=== PATIENT | male | born 1950 | race Caucasian/White ===

== ENCOUNTER 2016-07-16 16:55 | Emergency (ER) | payer MEDICARE ==
[2016-07-16 18:14] VITALS: BP 125/64
[2016-07-16] MEDS ORDERED: Acetaminophen TAB* 325 MG PO ONE (18:50)
[2016-07-16] MEDS ORDERED: NS 0.9% 1000 ML* 3,000 ML IV ONE (18:50)
--- NOTE | 2016-07-16 19:13 | RAD ---
INDICATION: Septic workup COMPARISON: September 06, 2011 TECHNIQUE: An AP portable view obtained at 1857 hours is submitted. FINDINGS: Bones/Soft Tissues: There are no acute bony findings. Cardiomediastinal: The cardiomediastinal silhouette is normal. Lungs: There are no infiltrates. Pleura: There are no pleural effusions. Other: None IMPRESSION: NORMAL CHEST.
[2016-07-16 19:43] LABS: Hematocrit 35 % (42-52); Hemoglobin 11.8 g/dl (14.0-18.0); Mean Corpuscular HGB Conc 34 g/dl (31-36); Mean Corpuscular Hemoglobin 31 pg (27-31); Mean Corpuscular Volume 91 fL (80-94); Mean Platelet Volume 8 um3 (7.4-10.4); Red Blood Count 3.87 10^6/ul (4.0-5.4); Red Cell Distribution Width 15 % (10.5-15); White Blood Count 13.6 10^3/ul (3.5-10.8)
[2016-07-16 19:54] LABS: Urine Bilirubin Negative (Negative); Urine Glucose Negative (Negative); Urine Nitrite Negative (Negative)
[2016-07-16 19:58] LABS: Albumin 3.3 g/dL (3.2-5.2); BUN/Creatinine Ratio 25.5 (8-20); C Reactive Protein 67.29 mg/L (< 5.00); Calcium 8.9 mg/dL (8.6-10.3); EGFR African American 102.9 (>60); Globulin 3.2 g/dL (2-4); Potassium 3.3 mmol/L (3.5-5.0); Total Bilirubin 5.2 mg/dL (0.2-1.0); Total Protein 6.5 g/dL (6.4-8.9)
[2016-07-16] MEDS ORDERED: Iohexol 300* (CONTRAST) 10 ML SDV IV ONE (20:34)
--- NOTE | 2016-07-16 20:42 | ED ---
Colt Correa Adam, scribed for Domenic Daniels MD on 07/16/16 at 1953 . HPI Febrile Illness - HPI Summary HPI Summary: Pt is a 66 year old male presenting with a fever that set on this afternoon. He states that his temperature spiked to 103 F at approximately 16:00, accompanied by mild confusion. The pt called his PCP who advised him to come to the ED for a sepsis work-up. The pt took 2 Motrin and by the time he arrived at the ED he was afebrile. PMHx of pancreatic CA. - History of Current Complaint Chief Complaint: EDAbdPain Time Seen by Provider: 07/16/16 19:07 Hx Obtained From: Patient Onset/Duration: Started Hours Ago, Atraumatic, Still Present Timing: Constant Initial Severity: Moderate Current Severity: Mild Aggravating Factors: Nothing Alleviating Factors: OTC Medicine - Motrin Associated Signs and Symptoms: Altered Mental Status - Confusion - Allergy/Home Medications Allergies/Adverse Reactions: Allergies Allergy/AdvReac Type Severity Reaction Status Date / Time No Known Allergies Allergy Verified 05/18/14 15:27 PMH/Surg Hx/FS Hx/Imm Hx Endocrine/Hematology History: Denies: Hx Diabetes, Hx Thyroid Disease Cardiovascular History: Reports: Other Cardiovascular Problems/Disorders - MURMER WITHOUT TREATMENT Denies: Hx Congestive Heart Failure, Hx Hypertension Respiratory History: Denies: Hx Asthma, Hx Chronic Obstructive Pulmonary Disease (COPD) GI History: Denies: Hx Ulcer, Other GI Disorders History: Denies: Hx Kidney Stones - Cancer History Cancer Type, 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 Hx Chemotherapy: Yes - Surgical History Surgery Procedure, Year, and Place: ABORTED WHIPPLE PROCEDURE, TONSILECTOMY, renal stone removal Infectious Disease History: No Infectious Disease History: Denies: Hx Clostridium Difficile, Hx Hepatitis, Hx Human Immunodeficiency Virus (HIV), Hx of Known/Suspected MRSA, Hx Shingles, Hx Tuberculosis, Traveled Outside the [place] in Last 30 Days - Family History Known Family History: Positive: Other - Leukemia (mother) Negative: Cardiac Disease, Hypertension, Diabetes - Social History Occupation: Employed Full-time Lives: With Family - Alcohol Use: Occasionally Hx Substance Use: No Substance Use Type: Reports: None Hx Tobacco Use: Yes Smoking Status (MU): Former Smoker Review of Systems Positive: Fever Neurological: Other - Confusion All Other Systems Reviewed And Are Negative: Yes Physical Exam Triage Information Reviewed: Yes Vital Signs On Initial Exam: Initial Vitals Temp Pulse Resp BP Pulse Ox 99.3 F 106 24 136/61 96 07/16/16 17:01 07/16/16 17:01 07/16/16 17:01 07/16/16 17:01 07/16/16 17:01 Vital Signs Reviewed: Yes Appearance: Positive: Well-Appearing, No Pain Distress Skin: Positive: Warm, Jaundiced Head/Face: Positive: Normal Head/Face Inspection Eyes: Positive: DON ENT: Positive: Hearing grossly normal Neck: Positive: Supple Cardiovascular: Positive: RRR Abdomen Description: Positive: Nontender, Soft. Negative: Guarding Bowel Sounds: Positive: Present Musculoskeletal: Positive: Strength/ROM Intact Neurological: Positive: Sensory/Motor Intact Psychiatric: Positive: Affect/Mood Appropriate Diagnostics - Vital Signs Vital Signs Temp Pulse Resp BP Pulse Ox 07/16/16 18:12 98.0 F 82 20 125/64 99 07/16/16 17:01 99.3 F 106 24 136/61 96 - Laboratory Lab Results: Lab Results 07/16/16 07/16/16 07/16/16 Range/Units 19:25 19:25 19:25 WBC 13.6 H (3.5-10.8) 10^3/ul RBC 3.87 L (4.0-5.4) 10^6/ul Hgb 11.8 L (14.0-18.0) g/dl Hct 35 L (42-52) % MCV 91 (80-94) fL MCH 31 (27-31) pg MCHC 34 (31-36) g/dl RDW 15 (10.5-15) % Plt Count 181 (150-450) 10^3/ul MPV 8 (7.4-10.4) um3 Neut % (Auto) 90.8 H (38-83) % Lymph % (Auto) 3.0 L (25-47) % [place] % (Auto) 5.3 (1-9) % Eos % (Auto) 0.6 (0-6) % Baso % (Auto) 0.3 (0-2) % Absolute Neuts (auto) 12.3 H (1.5-7.7) 10^3/ul Absolute Lymphs (auto) 0.4 L (1.0-4.8) 10^3/ul Absolute Monos (auto) 0.7 (0-0.8) 10^3/ul Absolute Eos (auto) 0.1 (0-0.6) 10^3/ul Absolute Basos (auto) 0 (0-0.2) 10^3/ul Absolute Nucleated RBC 0.01 10^3/ul Nucleated RBC % 0.1 INR (Anticoag Therapy) 1.06 (0.89-1.11) Sodium (133-145) mmol/L Potassium (3.5-5.0) mmol/L Chloride (101-111) mmol/L Carbon Dioxide (22-32) mmol/L Anion Gap (2-11) mmol/L BUN (6-24) mg/dL Creatinine (0.67-1.17) mg/dL Est GFR ( Amer) (>60) Est GFR (Non-Af Amer) (>60) BUN/Creatinine Ratio (8-20) Glucose (70-100) mg/dL Lactic Acid (0.5-2.0) mmol/L Calcium (8.6-10.3) mg/dL Total Bilirubin (0.2-1.0) mg/dL AST (13-39) U/L ALT (7-52) U/L Alkaline Phosphatase (34-104) U/L C-Reactive Protein (< 5.00) mg/L Total Protein (6.4-8.9) g/dL Albumin (3.2-5.2) g/dL Globulin (2-4) g/dL Albumin/Globulin Ratio (1-3) Urine Color [place] Urine Appearance Clear Urine pH 5.0 (5-9) Ur Specific [place] 1.011 (1.010-1.030) Urine Protein Negative (Negative) Urine Ketones Negative (Negative) Urine Blood Negative (Negative) Urine Nitrate Negative (Negative) Urine Bilirubin Negative (Negative) Urine Urobilinogen Negative (Negative) Ur Leukocyte Esterase Negative (Negative) Urine Glucose Negative (Negative) Influenza A (Rapid) (Negative) Influenza B (Rapid) (Negative) 07/16/16 07/16/16 07/16/16 Range/Units 19:25 19:25 19:42 WBC (3.5-10.8) 10^3/ul RBC (4.0-5.4) 10^6/ul Hgb (14.0-18.0) g/dl Hct (42-52) % MCV (80-94) fL MCH (27-31) pg MCHC (31-36) g/dl RDW (10.5-15) % Plt Count (150-450) 10^3/ul MPV (7.4-10.4) um3 Neut % (Auto) (38-83) % Lymph % (Auto) (25-47) % [place] % (Auto) (1-9) % Eos % (Auto) (0-6) % Baso % (Auto) (0-2) % Absolute Neuts (auto) (1.5-7.7) 10^3/ul Absolute Lymphs (auto) (1.0-4.8) 10^3/ul Absolute Monos (auto) (0-0.8) 10^3/ul Absolute Eos (auto) (0-0.6) 10^3/ul Absolute Basos (auto) (0-0.2) 10^3/ul Absolute Nucleated RBC 10^3/ul Nucleated RBC % INR (Anticoag Therapy) (0.89-1.11) Sodium 132 L (133-145) mmol/L Potassium 3.3 L (3.5-5.0) mmol/L Chloride 99 L (101-111) mmol/L Carbon Dioxide 23 (22-32) mmol/L Anion Gap 10 (2-11) mmol/L BUN 24 (6-24) mg/dL Creatinine 0.94 (0.67-1.17) mg/dL Est GFR ( Amer) 102.9 (>60) Est GFR (Non-Af Amer) 80.0 (>60) BUN/Creatinine Ratio 25.5 H (8-20) Glucose 158 H (70-100) mg/dL Lactic Acid 1.7 (0.5-2.0) mmol/L Calcium 8.9 (8.6-10.3) mg/dL Total Bilirubin 5.20 H (0.2-1.0) mg/dL AST 85 H (13-39) U/L ALT 120 H (7-52) U/L Alkaline Phosphatase 252 H (34-104) U/L C-Reactive Protein 67.29 H (< 5.00) mg/L Total Protein 6.5 (6.4-8.9) g/dL Albumin 3.3 (3.2-5.2) g/dL Globulin 3.2 (2-4) g/dL Albumin/Globulin Ratio 1.0 (1-3) Urine Color Urine Appearance Urine pH (5-9) Ur Specific [place] (1.010-1.030) Urine Protein (Negative) Urine Ketones (Negative) Urine Blood (Negative) Urine Nitrate (Negative) Urine Bilirubin (Negative) Urine Urobilinogen (Negative) Ur Leukocyte Esterase (Negative) Urine Glucose (Negative) Influenza A (Rapid) Negative (Negative) Influenza B (Rapid) Negative (Negative) Result Diagrams: 07/16/16 19:25 07/16/16 19:25 Lab Statement: Any lab studies that have been ordered have been reviewed, and results considered in the medical decision making process. - Radiology CXR Radiology Interpretation Completed By: Radiologist - IMPRESSION: NORMAL CHEST - CT A/P CT Interpretation Completed By: Radiologist - Lung bases: The lung bases are clear. Liver: The liver is normal in size. There are no masses. There is moderate intrahepatic ductal dilatation demonstrated interval improvement. There is pneumobilia consistent with interval instrumentation. There is been interval biliary stent placement. The stent extends from the common duct into the duodenum. Gallbladder: There are no calcified gallstones. There is no evidence of wall thickening or pericholecystic fluid. The gallbladder is mildly distended Spleen: There is splenomegaly. There are no masses. Pancreas: There is again a pancreatic mass better evaluated on the pancreatic mass protocol examination from June 14, 2016. On today's examination the mass measures approximately 4.3 x 3.8 cm. These measurements are slightly smaller. There is persistent pancreatic ductal dilatation, unchanged. Adrenal glands: There is no evidence of adrenal mass. Kidneys: The kidneys are normal in size and position. There are prompt nephrograms and there is prompt excretion bilaterally. There are no renal parenchymal masses. There is no evidence of nephrolithiasis. Adenopathy: There is an enlarged lesser curvature lymph node measuring 3.9 x 2.2 cm, unchanged. Fluid collections: There are no free or localized fluid collections. Vessels:There are no significant atherosclerotic changes involving the aorta. There is no focal aneurysm. The iliac vessels are normal in caliber. The IVC appears normal. GI tract: There are no abnormality upper GI tract. There are extensive diverticula of the sigmoid colon and scattered diverticula throughout the remainder the colon without CT findings to suggest acute diverticulitis. Pelvic organs: The prostate and seminal vesicles appear normal Bladder: There are no bladder masses. Abdominal and pelvic soft tissues: The extraperitoneal abdominal and pelvic soft tissues appear normal.. Osseous structures: There are no acute osseous findings. - EKG 19:36 Cardiac Rate: NL - 79 BPM EKG Rhythm: Sinus Rhythm - Normal - Additional Comments Diagnostic Additional Comments: Influenza A (Rapid) - Negative Influenza B (Rapid) - Negative Re-Evaluation - Re-Evaluation First Eval Change: Improved Course/Dx - Diagnoses Provider Diagnoses: Febrile illness Discharge - Discharge Plan Condition: Stable Disposition: HOME Patient Education Materials: Fever in Adults (ED) Referrals: Eloise Jauregui MD [Primary Care Provider] - Additional Instructions: Follow up with Dr. Jauregui tomorrow (07/17/16). The documentation as recorded by the Colt rai Adam accurately reflects the service I personally performed and the decisions made by , Domenic Daniels MD.
--- NOTE | 2016-07-16 21:41 | RAD ---
INDICATION: Pancreatic neuroendocrine tumor COMPARISON: CT abdomen June 14, 2016; CT May 22, 2015 TECHNIQUE: Axial source images were obtained from the hemidiaphragms to the symphysis pubis following administration of oral and intravenous contrast. 115 mL Omnipaque 300 was utilized. Coronal and sagittal reconstructed images were acquired. Lung bases: The lung bases are clear. Liver: The liver is normal in size. There are no masses. There is moderate intrahepatic ductal dilatation demonstrated interval improvement. There is pneumobilia consistent with interval instrumentation. There is been interval biliary stent placement. The stent extends from the common duct into the duodenum. Gallbladder: There are no calcified gallstones. There is no evidence of wall thickening or pericholecystic fluid. The gallbladder is mildly distended Spleen: There is splenomegaly. There are no masses. Pancreas: There is again a pancreatic mass better evaluated on the pancreatic mass protocol examination from June 14, 2016. On today's examination the mass measures approximately 4.3 x 3.8 cm. These measurements are slightly smaller. There is persistent pancreatic ductal dilatation, unchanged. Adrenal glands: There is no evidence of adrenal mass. Kidneys: The kidneys are normal in size and position. There are prompt nephrograms and there is prompt excretion bilaterally. There are no renal parenchymal masses. There is no evidence of nephrolithiasis. Adenopathy: There is an enlarged lesser curvature lymph node measuring 3.9 x 2.2 cm, unchanged. Fluid collections: There are no free or localized fluid collections. Vessels:There are no significant atherosclerotic changes involving the aorta. There is no focal aneurysm. The iliac vessels are normal in caliber. The IVC appears normal. GI tract: There are no abnormality upper GI tract. There are extensive diverticula of the sigmoid colon and scattered diverticula throughout the remainder the colon without CT findings to suggest acute diverticulitis. Pelvic organs: The prostate and seminal vesicles appear normal Bladder: There are no bladder masses. Abdominal and pelvic soft tissues: The extraperitoneal abdominal and pelvic soft tissues appear normal.. Osseous structures: There are no acute osseous findings. Other: None IMPRESSION: 1. Interval biliary stenting with a decrease in the degree of intrahepatic ductal dilatation. 2. Uncinate process mass demonstrating mild interval decrease in size 3. Stable lesser curvature lymphadenopathy 4. Splenomegaly 5. Extensive diverticula without CT evidence of acute diverticulitis
--- NOTE | 2016-07-19 16:40 | ED ---
Progress - Progress Note Progress Note: Pt's venous blood cx reveals Enterobacter cloacae. Called pt to notify and he reports he's feeling better than day of evaluation. "No fever", "eating properly ", however "itching coming back a little". Started to explain he has a bacteria found in his blood and line was disconnected. Contacted his PCP who reports pt is aware of these cx findings but is reluctant to return to ED as he's feeling better. She reports he's also quite stressed w/ his dx of neuroendocrine tumor which he's had for 6 years now. Had stent placed in late June and liver enzymes/bilirubin improved however appear to be elevated on 07/16 as well as having a high WBC count. PCP reports pt tx'd his fever prior to arrival which is most likely why he was afebrile during visit here. She agrees to contact him again and request he f/u at ED. Will notify providers on tonight as well in the event he returns. PCP also states cx results were not forwarded to [facility] - will do so if pt has given permission. Re-Evaluation - Re-Evaluation First Eval Change: Improved Course/Dx - Diagnoses Provider Diagnoses: Febrile illness
--- NOTE | 2016-07-20 14:52 | PN ---
Progress Note - Progress Note Note: Patient blood culture grew Enterobacter cloacae which called microbiology department and stated is not a normal bacteria on skin. Attempted to call patient twice and was unable to make contact. Left voicemail stating as long as feeling okay and afebrile (which according to Reema's note yesterday) can take levofloxacin once a day for 10 days and follow up with primary. Advised if not feeling well or has a fever to return to ED immediately as will need IV antibiotics.
== END 2016-07-16 22:39 | disposition home or self-care (01) ==
LOC: ED 16:55
DX: R50.9 Fever, unspecified (principal); Z85.07 Personal history of malignant neoplasm of pancreas
CPT/HCPCS: 36415; 71010; 74177; 80053; 81003; 83605; 85025; 85610; 86140; 87040; 87077; 87186; 87205; 87502; 93005; 99282; Q9967

== ENCOUNTER 2018-06-10 15:08 | Emergency (ER) | payer MEDICARE ==
[2018-06-10] MEDS ORDERED: NS 0.9% 1000 ML** 1,000 ML IV ONE (15:09)
[2018-06-10] MEDS ORDERED: Alteplase* 100 MG VIAL ONE (15:20)
[2018-06-10] MEDS ORDERED: Esmolol 10 MG/ML IVPREMIX* 2,500 MG/250 ML BAG IVPB ONE (15:39)
--- NOTE | 2018-06-10 15:59 | ED ---
Neurological HPI - HPI Summary HPI Summary: Patient is a 67 y/o M presenting via ambulance as zaheer barrera. Zaheer barrera called at 1500 HOSPITALIST NOCTURNIST PHYSICIAN, arrival of patient at 1506, immediately evaluated by provider at 1506. It is noted that patient was on treadmill just this morning. Patient had a conversation with at around 1300. He was unreachable for the next hour. A friend was sent to the house, patient was found on the floor, unresponsive, with emesis besides him. Patient is awake and unable to recall fall in ED. EMS reports that patient had left pronator drift, fatigue, grogginess. PMHx of type 1 diabetes, BG was 246. They note that left eye is "blown" from a previous injury. Dr. Valentine at bedside at 1507. Patient wheeled to CT at 1509. On triage , pain denied, nothing noted to aggravate/alleviate Sx. Home medications and allergies are reviewed. - History of Current Complaint Chief Complaint: EDAltMentalStatus Stated Complaint: ZAHEER HANSON Time Seen by Provider: 06/10/18 15:09 Hx Obtained From: Patient Onset/Duration: Started hours ago - found on floor at around 1400, Still Present Current Severity: None - pain denied Pain Intensity: 0 Pain Scale Used: 0-10 Numeric - 0/10 Character: Other: - left pronator drift, fatigue, groggy Aggravating: Nothing Alleviating: Nothing Associated Signs and Symptoms: Positive: Memory Loss - Allergy/Home Medications Allergies/Adverse Reactions: Allergies Allergy/AdvReac Type Severity Reaction Status Date / Time lorazepam AdvReac Severe Agitation Verified 06/10/18 17:07 Home Medications: Home Medications Brimonidine P 0.15%(NF) [Alphagan P 0.15%(NF)] 1 drop BOTH EYES BID 06/10/18 [ History Confirmed 06/10/18] Cyanocobalamin TAB* [Vitamin B12 TAB*] 3,000 mcg SL DAILY 06/10/18 [History Confirmed 06/10/18] Insulin GLARGINE(*) [Lantus(*)] 40 units SUBCUT DAILY 06/10/18 [History Confirmed 06/10/18] Insulin Lispro [Humalog Kwikpen] 8 unit SUBCUT .WITH EVERY MEAL 06/10/18 [ History Confirmed 06/10/18] Losartan TAB* [Cozaar TAB*] 100 mg PO DAILY 06/10/18 [History Confirmed 06/10/18 ] Timolol 0.5% OPTH.DAVID* [Timoptic 0.5% Opth*] 1 drop LEFT EYE DAILY 06/10/18 [ History Confirmed 06/10/18] metFORMIN* [Glucophage 850 MG TAB *] 850 mg PO BID 06/10/18 [History Confirmed 06/10/18] PMH/Surg Hx/FS Hx/Imm Hx Endocrine/Hematology History: Reports: Hx Diabetes - not on meds, "artificial" per patient Denies: Hx Thyroid Disease Cardiovascular History: Reports: Hx Hypertension, Other Cardiovascular Problems/ Disorders - MURMER WITHOUT TREATMENT Denies: Hx Congestive Heart Failure Respiratory History: Denies: Hx Asthma, Hx Chronic Obstructive Pulmonary Disease (COPD) GI History: Denies: Hx Ulcer, Other GI Disorders History: Denies: Hx Dialysis, Hx Kidney Stones, Hx Renal Disease - Cancer History Cancer Type, 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 Hx Chemotherapy: Yes - Surgical History Surgery Procedure, Year, and Place: ABORTED WHIPPLE PROCEDURE, TONSILECTOMY, renal stone removal 2014 Infectious Disease History: No Infectious Disease History: Denies: Hx Clostridium Difficile, Hx Hepatitis, Hx Human Immunodeficiency Virus (HIV), Hx of Known/Suspected MRSA, Hx Shingles, Hx Tuberculosis, Traveled Outside the [place] in Last 30 Days - Family History Known Family History: Positive: Other - Leukemia (mother) Negative: Cardiac Disease, Hypertension, Diabetes - Social History Alcohol Use: Occasionally Hx Substance Use: No Substance Use Type: Reports: None Hx Tobacco Use: Yes Smoking Status (MU): Former Smoker Review of Systems Constitutional: Other - POSITIVE - GROGGINESS Positive: Fatigue Positive: Vomiting Neurological: Other - POSITIVE - PRONATOR DRIFT, MEMORY LOSS Positive: Syncope All Other Systems Reviewed And Are Negative: Yes Physical Exam - Summary Physical Exam Summary: Appearance: Well appearing, no pain distress Skin: warm, dry, reflects adequate perfusion Head/face: normal Eyes: EOMI, DON ENT: normal Neck: supple, non-tender Respiratory: CTA, breath sounds present Cardiovascular: RRR, pulses symmetrical Abdomen: non-tender, soft Musculoskeletal: normal, strength/ROM intact Neuro: A&Ox3, GCS 15, NIH 1 Triage Information Reviewed: Yes Vital Signs On Initial Exam: Initial Vitals Temp Pulse Resp BP Pulse Ox 101.5 F 86 20 185/83 99 01/30/19 15:15 06/10/18 15:15 06/10/18 15:15 06/10/18 15:15 06/10/18 15:15 Vital Signs Reviewed: Yes Diagnostics - Vital Signs Vital Signs Temp Pulse Resp BP Pulse Ox 06/10/18 15:37 97 06/10/18 15:22 88 192/80 94 06/10/18 15:21 90 94 06/10/18 15:15 101.5 F 86 20 185/83 99 - Laboratory Lab Results: Lab Results 06/10/18 Range/Units 15:24 POC Glucose (mg/dL) 287 H (70-100) mg/dL Result Diagrams: 06/10/18 15:37 06/10/18 15:37 Lab Statement: Any lab studies that have been ordered have been reviewed, and results considered in the medical decision making process. - Radiology cxr Radiology Interpretation Completed By: Radiologist Summary of Radiographic Findings: CXR IMPRESSION: NO ACTIVE CARDIOPULMONARY DISEASE. THIS REPORT WAS REVIEWED BY ED PHYSICIAN. - CT brain ct CT Interpretation Completed By: Radiologist Summary of CT Findings: BRAIN CT IMPRESSION: NO ACUTE INTRACRANIAL PATHOLOGY. CHRONIC SMALL VESSEL ISCHEMIC CHANGE. THIS REPORT WAS REVIEWED BY ED PHYSICIAN. head cta CT Interpretation Completed By: Radiologist Summary of CT Findings: HEAD CTA IMPRESSION: No occlusion or hemodynamically significant stenosis in the arteries of the. neck. THIS REPORT WAS REVIEWED BY ED PHYSICIAN. abd/pel ct CT Interpretation Completed By: Radiologist Summary of CT Findings: CT ABD/PEL IMPRESSION: 1. Similar size and appearance of large pancreatic mass with common bile duct. stent in place. No definite evidence of metastatic progression of disease. 2. Other chronic findings, as above. This report was reviewed by ED physician. - EKG 1542 Cardiac Rate: NL - rate of 86 BPM EKG Rhythm: Sinus Rhythm Summary of EKG Findings: EKG showed sinus rhythm with rate of 86 BPM, LBBB. 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 Non-Paretic Hand: Both Correctly Best Gaze (Only Horizontal Eye Movement): Normal Visual Field Testing: No Visual Loss Facial Paresis-Pt to Smile & Close Eyes or Grimace Symmetry: Normal/Symmetrical Motor Function - Right Arm: No Drift-Holds 10 Seconds Motor Function - Left Arm: Drifts LT 10 seconds Motor Function - Right Leg: No Drift-Holds 10 Seconds Motor Function - Left Leg: No Drift-Holds 10 Seconds Limb Ataxia-Must be out of Proportion to Weakness Present: Absent Sensory (Use Pinprick to Test Arms/Legs/Trunk/Face): Normal Best Language (Describe Picture, Name Items): No Aphasia Dysarthria (Read Several Words): Normal Extinction and Inattention: No Abnormality Total Score: 1 Re-Evaluation - Re-Evaluation First Eval Re-Evaluation Time: 15:22 Comment: Patient back from CT, NIH carried out Third Eval Re-Evaluation Time: 16:15 Comment: Aware of patient's fever Fourth Eval Re-Evaluation Time: 16:51 Comment: Bladder scan showed urinary retention, 457 ml, Evans cath to be placed. Fifth Eval Re-Evaluation Time: 16:56 Comment: reports that Ativan "makes him go crazy" Second Eval Re-Evaluation Time: 16:00 Comment: , who is out of town in [place], was reached, she notes that patient sounded fatigued/groggy at around 1100 today. Sixth + Eval Re-Evaluation Time: 19:37 Comment: Transfer discussed with patient, patient is agreeable. Course/Dx - Course Course Of Treatment: Patient is a 67 y/o M presenting via ambulance as zaheer barrera. Zaheer barrera called at 1500 HOSPITALIST NOCTURNIST PHYSICIAN, arrival of patient at 1506, immediately evaluated by provider at 1506. It is noted that patient was on treadmill just this morning. Patient had a conversation with at around 1300. He was unreachable for the next hour. A friend was sent to the house, patient was found on the floor, unresponsive, with emesis besides him. Patient is awake and unable to recall fall in ED. EMS reports that patient had left pronator drift, fatigue, grogginess. PMHx of type 1 diabetes, BG was 246. They note that left eye is "blown" from a previous injury. EKG showed sinus rhythm with rate of 86 BPM, LBBB. BRAIN CT IMPRESSION: NO ACUTE INTRACRANIAL PATHOLOGY. CHRONIC SMALL VESSEL ISCHEMIC CHANGE. CXR IMPRESSION: NO ACTIVE CARDIOPULMONARY DISEASE. , who is out of town in [place], was reached, she notes that patient sounded fatigued/groggy at around 1100 today. 1511 - Patient's case was discussed with Dr. Valentine, he will evaluate. 1513 - Dr. Castellanos communicated CT results. 1522 - Dr. Valentine initiates NIH stroke scale. 1539 - Dr. Dill was consulted on patient's LBBB. 1610 - Dr. Valentine had contacted , relayed conversation. Hx of anxiety is reported, he recommends Ativan for patient. Patient is noted to have a fever. Bladder scan showed urinary retention, 457 ml , Evans cath to be placed. Ativan not given as reports that Ativan "makes him go crazy". HEAD CTA IMPRESSION: No occlusion or hemodynamically significant stenosis in the arteries of the. neck. During ED course, patient was given Fluids, Piperacillin sod/tazobactam sod 3.375 gm in sodium chloride 100 mls @ 200 mls/hr IVPB ED ONCE, Tylenol 650 mg PO, and Esmolol 2500 mg in 250 ml @ 26.971 mls/hr IVPB .PER PARAMETERS KHURRAM 50 MCG/KG/MIN. Influenza A, B were negative. Labs, UA were obtained. Patient had elevated LFTs, fever. CT ABD /PEL IMPRESSION: 1. Similar size and appearance of large pancreatic mass with common bile duct. stent in place. No definite evidence of metastatic progression of disease. 2. Other chronic findings, as above. 184 - Hospitalist services had been contacted. Jordon Mcnulty from hospitalist services dicussed patient's case with GI Dr. Johnson. Per Jordon Humphrey note, it was possible that this patient would need his biliary stent replaced for treatment of sepsis. We do not offer this service at this hospital, so it was recommended that the patient be transferred to a higher level of care." Patient's GI at [facility] in [place] will be contacted. 1934 - Unable to reach Dr. Toure directly, Dr. Chamorro in ED was contacted. Patient's case was discussed, Dr. Chamorro accepts fortransfer. Patient is agreeable with transfer. - Differential Dx Differential Diagnoses Neuro: Positive: Cerebrovascular Accident, Intracranial Bleed, Transient Ischemic Attack, Other - sepsis/pancreatic tumor - Diagnoses Provider Diagnoses: Pancreatic tumor, Sepsis - Physician Notifications Discussed Care Of Patient With: Tha Valentine Time Discussed With Above Provider: 15:11 Instructed by Provider To: Other - 1511 - Patient's case was discussed with Dr. Valentine, he will evaluate. 1513 - Dr. Castellanos communicated CT results. 1522 - Dr. Valentine initiates NIH stroke scale. 1539 - Dr. Dill was consulted on patient's LBBB. 1610 - Dr. Valentine had contacted , relayed conversation. Hx of anxiety is reported, he recommends Ativan for patient. 1844 - Hospitalist services had been contacted. Per Jordon Humphrey note, it was possible that this patient would need his biliary stent replaced for treatment of sepsis. We do not offer this service at this hospital, so it was recommended that the patient be transferred to a higher level of care." GI at [place] to be contacted. 193 - Unable to reach Dr. Toure directly, Dr. Wheat in ED was contacted. Patient's case was discussed, Dr. Wheat accepts for transfer - Critical Care Time Critical Care Time: 30-74 min Discharge - Sign-Out/Discharge Documenting (check all that apply): Patient Departure - transfer - Discharge Plan Condition: Good Disposition: TRANS HIGHER LVL OF CARE FAC Referrals: Eloise Jauregui MD [Primary Care Provider] - - Billing Disposition and Condition Condition: GOOD Disposition: Trans Higher Lvl of Care Fac - Attestation Statements Document Initiated by Jenaro: Yes Documenting Scribe: ISAAC GREGORY Provider For Whom Jenaro is Documenting (Include Credential): RCIK WILLS MD Scribe Attestation: I, ISAAC GREGORY , scribed for RICK WILLS MD on 06/10/18 at 1958. Scribe Documentation Reviewed: Yes Provider Attestation: The documentation as recorded by the ISAAC rai accurately reflects the service I personally performed and the decisions made by me, RICK WILLS MD Status of Scribe Document: Viewed
[2018-06-10] MEDS ORDERED: Esmolol DRIP* 10 MG/ML 250 ML BAG IVPB SCH (16:00)
[2018-06-10 16:11] LABS: ABS Basophils 0 10^3/ul (0-0.2); ABS Eosinophils 0 10^3/ul (0-0.6); ABS Lymphocytes 0.3 10^3/ul (1.0-4.8); ABS Monocytes 0.5 10^3/ul (0-0.8); ABS Neutrophils 6.7 10^3/ul (1.5-7.7); ABS Nucleated RBC 0 10^3/ul; Eosinophil % 0.5 %; Hematocrit 41 % (42-52); Hemoglobin 13.9 g/dl (14.0-18.0); Lymphocyte % 4.6 %; Mean Corpuscular HGB Conc 34 g/dl (31-36); Mean Corpuscular Hemoglobin 30 pg (27-31); Mean Corpuscular Volume 90 fL (80-94); Mean Platelet Volume 8.3 fL (7.4-10.4); Nucleated Red Blood Cells % 0; Platelet Count 115 10^3/ul (150-450); Red Blood Count 4.56 10^6/ul (4.00-5.40); Red Cell Distribution Width 17 % (10.5-15); White Blood Count 7.6 10^3/ul (3.5-10.8)
[2018-06-10] MEDS ORDERED: LORazepam INJ* 2 MG/ML 1 ML VIAL IV PUSH ONE (16:14)
[2018-06-10] MEDS ORDERED: Acetaminophen SUPP* 650 MG SUPP PR ONE (16:16)
[2018-06-10 16:17] LABS: Activated Partial Thrombo Time 26.8 seconds (26.0-36.3); INR 1.06 (0.77-1.02)
[2018-06-10] MEDS ORDERED: Iodixanol* (CONTRAST) 320 MG/ML 100 ML SDV IV ONE (16:19)
[2018-06-10 16:31] LABS: Albumin 4.4 g/dL (3.2-5.2); Albumin/Globulin Ratio 1.6 (1-3); BUN/Creatinine Ratio 21.1 (8-20); Calcium 9.8 mg/dL (8.6-10.3); EGFR African American 81.4 (>60); EGFR Non-African American 67.3 (>60); Globulin 2.8 g/dL (2-4); HDL Cholesterol 47.2 mg/dL; Potassium 3.7 mmol/L (3.5-5.0); Total Bilirubin 1.5 mg/dL (0.2-1.0); Total Protein 7.2 g/dL (6.4-8.9)
[2018-06-10 16:32] LABS: Troponin I 0.03 ng/mL (<0.04)
[2018-06-10] MEDS ORDERED: Acetaminophen TAB* 325 MG ONE (16:44)
[2018-06-10 16:45] LABS: Influenza A Molecular NEGATIVE (Negative); Influenza B Molecular NEGATIVE (Negative)
[2018-06-10] MEDS ORDERED: Acetaminophen TAB* 325 MG PO ONE (16:46)
[2018-06-10 16:57] LABS: Urine Appearance Clear; Urine Bacteria Absent (Absent); Urine Bilirubin Negative (Negative); Urine Blood 2+ (Negative); Urine Color Yellow; Urine Glucose 1+(50 mg/dL) (Negative); Urine Ketones Negative (Negative); Urine Nitrite Negative (Negative); Urine Protein 1+(30 mg/dL) (Negative); Urine Red Blood Cell 3+(>10/hpf) (Absent); Urine Specific Gravity 1.016 (1.010-1.030); Urine Urobilinogen Negative (Negative); Urine White Blood Cell Trace(0-5/hpf) (Absent)
[2018-06-10] MEDS ORDERED: Iodixanol 320 (CONTRAST) 100 ML SDV IV ONE (17:55)
--- NOTE | 2018-06-10 18:38 | CONS ---
CONSULTATION REPORT: DATE OF CONSULT: ADDENDUM: We reached the , Tracy and I had a long discussion with her. She initially said that he last spoke to Ed at about 11 o'clock and he was tremorous and groggy at that point and tired. It is unclear when that actually started. She thought that this was typical for some of the spells that he has from time to time; last time was in January. It is thought to be either due to anxiety or low blood sugar. Of note, she says that his blood sugar was found to be 40 recently and his insulin was decreased from 30 units a day to 20 units a day within the week. She then called back to check in on him. He said initially it is noon, but then he was not exactly sure what time and he did not respond and she then reached a neighbor who went in, found him and then contacted the ambulance as described above. I discussed with her that it is unclear when he was last known well. It could have been when he began having possible ischemia to his brain. It could have been as early as 11 o'clock, but it is unclear and he is doing better now as I described earlier. I discussed with her that he is not a TPA candidate, but that we would be looking at the intracranial and carotid blood vessels to see if there is any other treatments. We will be getting things such as MRI scan. He will also need echo, fasting lipids. I discussed it is possible that this is not a TIA or a stroke because this could have been related to hypertension or some other problem, but we will see how things go. Thank you for sharing his case. [id number]/[facility] #: [id number] JULIANN
[2018-06-10] MEDS ORDERED: Piperacillin/Tazobac ADVAN(*) 3.375 GM in NS 0.9% 100 ML* 100 ML IVPB ONE (18:40)
--- NOTE | 2018-06-10 18:49 | PN ---
Hospitalist Progress Note Date of Service: 06/10/[address] Abdul of the Emergency Department with regards to this patient. I did not see or examine the patient. This case was discussed by me with Dr. Janie Johnson of Gastroenterology and based on Abdomen/Pelvis CT results, Elevated LFTs, Fever, and Known History of Neuroendocrine Tumor of the Pancreas with Biliary Stent, it was possible that this patient would need his biliary stent replaced for treatment of sepsis. We do not offer this service at this hospital, so it was recommended that the patient be transferred to a higher level of care. This was conveyed to Dr. Abdul of the Emergency Department.
[2018-06-10 20:37] VITALS: BP 169/77
--- NOTE | 2018-06-10 22:52 | CONS ---
TWO ADDENDUMS ARE NOW INCLUDED ON THIS REPORT CONSULTATION REPORT: DATE OF CONSULT: 06/10/18 - EMERGENCY DEPT PATIENT OF: Dr. Valladares and Dr. Jauregui. HISTORY OF PRESENT ILLNESS: This is a 67-year-old right-handed man who is being evaluated for possible stroke. He was fully active this morning and was on his treadmill jogging without problem. Sometime this afternoon, the neighbors were contacted by an out-of-town , who asked them to go and check on him. He was found upstairs lying on the floor with some vomit nearby. He was awake, but had some difficulty standing. He was brought in by ambulance, taken immediately to CT scan. Initial history from the paramedics was that there was some communication at 1 o'clock, but this is unclear whether this has been his first concern. He does not know when this happened and all he rememberers is that he was fine when he was jogging on the treadmill this morning. We have 2 numbers, but none for his 's cellphone and she is out of town. We have been unable to reach any other family members at this point. He is improved since being in ER. He says he feels slightly fatigued all over, but no focal deficits per him. He has a history of diabetes and hypertension and a history of pancreatic cancer. He has a [id number] history of smoking and he has not smoked for the past 10 years. No history of alcohol or drug abuse. PAST MEDICAL HISTORY: The patient has had left kidney stone with left hydronephrosis and has had a neuroendocrine carcinoid tumor of the pancreas diagnosed in 2011. The patient has had a pancreatic biopsy. MEDICATIONS: Include: 1. Losartan, recently reduced apparently to 20 mg a day. 2. He is on insulin and he does not remember the most recent dose. ALLERGIES: He has no known drug allergies. REVIEW OF SYSTEMS: Negative in all 14 spheres other than in HPI. There are no visual complaints and no headache. PHYSICAL EXAM: On exam, blood pressure is now 185/86, his pulse is 80, respirations 12. Temperature being taken, this is not in the chart yet. Blood pressure was more elevated in the ambulance. Cranial nerves II through XII were intact other than a dilated left pupil, which was traumatic. There was initially a slight facial asymmetry, but this resolved. Motor exam is with normal tone, strength, [id number], [id number], and he had no leg drift. In the right side, he had a right pronator drift initially; and just after 20 minutes, it was just a trace drift. He had no points off for dysarthria and he had intact speech and sensation. Chest: Clear. Cardiovascular: Regular rate and rhythm. Abdomen: Soft with positive bowel sounds. DIAGNOSTIC STUDIES/LAB DATA: CT scan showed no bleed or acute findings. There were some chronic small-vessel ischemic changes. Labs are pending. IMPRESSION/PLAN: As best we can tell his last known wel before focal neurologic deficits l was 9 or 10 o'clock, but we are trying to reach the . He does not know how she can be reached. We reached out to his doctors to see if they have her contact information, which they do not. We are tying to reach the now by reaching the neighbor and getting information, but the last known well as best we can tell may be 10 o'clock. Once the blood work comes back, we are going to be getting a CTA most likely depending on what his BUN and creatinine is and will be treating his blood pressure and his blood sugars as needed. He Thank you for sharing his case. ADDENDUM NO.1: We reached the , Tracy, and I had a long discussion with her. She initially said that he last spoke to Ed at about 11 o'clock and he was tremorous and groggy at that point and tired. It is unclear when that actually started. She thought that this was typical for some of the spells that he has from time to time; last time was in January. It is thought to be either due to anxiety or low blood sugar. Of note, she says that his blood sugar was found to be 40 recently and his insulin was decreased from 30 units a day to 20 units a day within the week. She then called back to check in on him. He said initially it is noon, but then he was not exactly sure what time and he did not respond and she then reached a neighbor who went in, found him and then contacted the ambulance as described above. I discussed with her that it is unclear when he was last known well. when he began having possible ischemia to his brain. It could have been as early as 11 o'clock, but it is unclear and he is doing better now as I described earlier. I discussed with her that he is not a TPA candidate, but that we would be looking at the intracranial and carotid blood vessels to see if there is any other treatments. We will be getting things such as MRI scan. He will also need echo, fasting lipids. I discussed it is possible that this is not a TIA or a stroke because this could have been related to hypertension or some other problem, but we will see how things go. Thank you for sharing his case. ADDENDUM NO.2: He has a temperature of 101, and I discussed this with Dr. Abdul and he is going to begin evaluating this as well; and depending on what his studies show, if he becomes confused, he may need a spinal tap. [id number]/[facility] #: [id number]/[facility] #: [id number]/[facility] #: [id number] JULIANN
--- NOTE | 2018-06-11 03:52 | CONS ---
CONSULTATION REPORT: DATE OF CONSULT: ADDENDUM: He has a temperature of 101, and I discussed this with Dr. Abdul and he is going to begin evaluating this as well; and depending on what his studies show, if he becomes confused, he may need a spinal tap. [id number]/[facility] #: [id number] MTDD
== END 2018-06-10 20:45 | disposition short-term general hospital (02) ==
LOC: ED 15:08
DX: D37.8 Neoplasm of uncertain behavior of other specified digestive organs (principal); A41.9 Sepsis, unspecified organism; R55 Syncope and collapse; R53.83 Other fatigue; R11.10 Vomiting, unspecified; Z87.891 Personal history of nicotine dependence; I10 Essential (primary) hypertension
CPT/HCPCS: 36415; 70450; 70496; 70498; 71045; 74177; 80053; 80061; 81003; 81015; 83605; 84484; 85025; 85610; 85730; 86850; 86900; 86901; 87086; 93005; 96365; 96366; 96375; 99285; A9270-GY; J2060; J2543; J2997; Q9967

== ENCOUNTER 2018-07-14 09:41 | Emergency (ER) | payer MEDICARE ==
[2018-07-14] MEDS ORDERED: NS 0.9% 1000 ML** 1,000 ML IV ONE (10:26)
--- OUTSIDE RECORDS SUMMARY | 2018-07-14 10:32 | XMS REPORT | Continuity of Care Document ---
:1950 External Reference #:[id number] Author Name Shiraz Zakia Care Team Providers Name Role Phone Eloise Jauregui MD Primary Care Physician Unavailable Payers Date Identification Numbers Payment Provider Subscriber Policy Number: [id number] Medicare Blue Ppo Roc Coronel PayID: [id number] [address] [address] THI Moreau [address] Advance Directives Description No Information Available Problems Date Description Provider Status Onset: 06/09/2015 Other specified polyneuropathies lOga Olvera MD Active Onset: 06/09/2015 Syncope and collapse Olga Olvera MD Active Family History Date Family Member(s) Observation Comments General Stroke General Diabetes Type II General Cancer Father due to in farming () accident Mother Leukemia Mother due to Cancer () - leukemia First Daughter Hypothyroidism Social History Type Date Description Comments Sex Unknown Marital Status Lives With 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 2-3 days a week Allergies, Adverse Reactions, Alerts Description No Known Drug Allergies Medications Medication Date Status Form Strength Qnty SIG Indications Ordering Provider Jardiance 06/24/ Active Tablets 10mg 30tab 10mg by mouth E13.8 Galvez 2019 s daily MD Nikolas Berman 06/24/ Active Solution 100Unit/ML 15ml 30 units E13.8 Galvez Kwikpen 2019 Pen-Inject daily at MD Antonella bedtime, maximum dose 50 units/day Metformin HCL 06/24/ Active Tablets ER 750mg 90tab take 1 tablet E13.8 Galvez ER 2018 24HR s by mouth MD Antonella daily Freestyle 04/27/ Active Misc 2unit place one E13.8 Galvez Nahum 14 2017 s sensor every MD Antonella Day/Sensor/Fl 14 days smooth Monitoring System Freestyle 04/27/ Active Device 1unit use at least E13.8 Galvez Nahum 14 2018 s 4 times daily MD Antonella Day/[place]/Fl with sensor smooth Monitoring System Pen Donna 02/19/ Active Misc 30G X 8 mm 200un use one pen E13.8 Galvez 2017 its needle 4 MD Antonella times daily Timolol / Active Solution 0.5% 1 drop in Unknown Maleate 0000 left eye daily Vitamin B12 / Active Tablets 3000mcg once daily Unknown 0000 Sub sublingually Brimonidine / Active Solution 0.15% 1 drops to Unknown Tartrate 0000 both eyes twie daily Losartan / Active Tablets 100mg 1 by mouth Unknown Potassium 0000 every day Humalog 04/16/ Hx Solution 100Unit/ML 15ml 8 units with Lenny Rosspen 2017 - Pen-Inject every meal MD Antonella 2018 Lantus 02/19/ Hx Solution 100Unit/ML 15ml 28 units E13.8 Galvez Solostar 2018 - Pen-Inject daily MD Antonella 2018 Freestyle 02/02/ Hx Device 1unit use every 8 E13.8 Galvez Nahum/[place]/ 2018 - s hours with MD Geovani Berman 04/27/ sensor Monitoring 2018 System Freestyle 02/02/ Hx Misc 3unit place device E13.8 Galvez Nahum/Sensor/ 2018 - s on skin every MD Geovani Berman days; use Monitoring 2017 with reader System every 8 hours Metformin HCL / Hx Tablets 850mg 1 by mouth Unknown 0000 - twice a day 2018 Sandostatin / Hx Kit 20mg once monthly Unknown [place] 0000 - 2018 Immunizations Description No Information Available Vital Signs Date Vital Result Comment 06/24/2018 8:29am Height 70 inches 5'10" Weight 182.00 lb w/shoes Heart Rate 73 /min BP Systolic Sitting 200 mmHg BP Diastolic Sitting 95 mmHg BMI (Body Mass Index) 26.1 kg/m2 02/19/2018 8:42am Height 70 inches 5'10" Weight 186.00 lb Heart Rate 62 /min BP Systolic Sitting 195 mmHg BP Diastolic Sitting 89 mmHg BMI (Body Mass Index) 26.7 kg/m2 02/02/2018 7:49am Height 70 inches 5'10" Weight 186.00 lb w/ shoes Heart Rate 60 /min BP Systolic Sitting 187 mmHg BP Diastolic Sitting 85 mmHg BMI (Body Mass Index) 26.7 kg/m2 06/09/2015 9:23am Height 70 inches 5'10" Weight 211.00 lb Heart Rate 64 /min BP Systolic Sitting 120 mmHg BP Diastolic Sitting 72 mmHg Respiratory Rate 16 /min BMI (Body Mass Index) 30.3 kg/m2 Results Test Date Facility Test Result H/L Range Note Laboratory test finding 06/24/[address] [facility] In House Glucose Random 281 Hemoglobin A1c 8.7 High 5-7 Laboratory test 02/05/2018 [facility] Chromogranin-A 55 ng/mL <93 1, [address] [place] [address] [phone] Glucagon <13 pg/mL <=80 3 Insulin Level 3.6 mcIU/mL N 2.0-16.0 4 C-Peptide 1.5 ng/mL 1.1 - 4.4 5 Vasoactive Intestinal Campbell <50 pg/mL <75 6 Gastrin <10 pg/mL 7 Urine Metanephrines 02/05/2018 [facility] Urine 132 mcg/24h [address] [place] [address] [phone] Urine Normetanephrine 313 mcg/24h 9 Urine Total Metanephrines 445 mcg/24h 10 Urine Collection Duration 24 h Urine Volume 1550 mL 11 Catecholamine 24HR 02/05/2018 [facility] Urine Collection 24 h Urine Fract [address] [place] [address] [phone] Urine Total Volume 1550 mL Urine Norepinephrine 31 mcg/24h 15-80 Urine Epinephrine 4.7 mcg/24h <21 Urine Dopamine 271 mcg/24h 65-400 12 Creatinine 24HR 02/05/2018 [facility] Urine Collection 24 hr Urine [address] [place] [address] [phone] Urine Total Volume 1500 mL Urine Random Creatinine 121.47 mg/dL Urine Creatinine/24HR 1822.05 mg/24Hr High 600-1800 Hiaa,5- 02/05/2018 [facility] Urine 5Hiaa 6.0 mg/24h <=8.[address] [place] [address] [phone] Urine Collection Duration 24 h Urine Total Volume 1550 mL 13 Laboratory test 02/05/2018 [facility] Afp Tumor 2.1 ng/mL < 6.[address] [place] [address] [phone] HCG Tumor Marker <0.6 IU/L <1.4 15 Laboratory test finding 02/02/2018 [employer] In House Glucose Random 348 Hemoglobin A1c 10.2 High 5-7 Ketones 0.1 Laboratory test 2015 [facility] Hemoglobin A1c 6.2 % High Less than [address] (Glyco HGB) 6.0 [place] [address] [phone] Laboratory test 06/09/2015 [facility] TSH (Thyroid 2.46 N 0.34 -5.60 [address] Stim Horm) ?IU/[place] [address] [phone] Free T4 (Free Thyroxine) 1.03 ng/mL N 0.61-1.12 18 Vitamin B12 377 pg/mL N 180-914 19 Folic Acid (Folate) 12.03 ng/mL N >3.99 20 Methylmalonic Acid Mma 0.52 nmol/mL Abnormal <=0.40 21 Homocysteine 11 mcmol/L N 22 Nitza (Antinuclear Antibodies) Negative N Negative 23 Erythrocyte Sed Rate 17 mm/Hr N 0-40 24 C Reactive Protein 6.69 mg/L High < 5.00 25 Protein 06/09/2015 [facility] Total 7.5 g/dL N 6.3 - Electrophoresis [address] Protein(Pep) 7.9 [place] [address] [phone] Albumin 3.9 g/dL N 3.4-4.7 Alpha-1 Globulin 0.3 g/dL N 0.1-0.3 Alpha-2 Globulin 1.0 g/dL N 0.6-1.0 Beta Globulin 1.3 g/dL Abnormal 0.7-1.2 Gamma Globulin 1.0 g/dL N 0.6-1.6 Albumin/Globulin Ratio 1.06 N Impression See Comment N 26 1 FASTING 2 A reagent change was implemented on date 09/17/2017. Measured chromogranin A concentrations were on average 7% higher using the new reagent formulation. However, for individual specimens the variation may exceed 7%. Upon request, samples previously submitted within the last six months can be retested using the new reagent formulation. ADDITIONAL INFORMATION This test was developed and its performance characteristics determined by [facility] in a manner consistent with CLIA requirements. This test has not been cleared or approved by the U.S. Food and Drug Administration. The testing method is a homogeneous time-resolved immunofluorescent assay. Values obtained with different assay methods or kits may be different and cannot be used interchangeably. Test results cannot be interpreted as absolute evidence for the presence or absence of malignant disease. Test Performed by: [facility] [place] [address] 3 ADDITIONAL INFORMATION Proven glucagonomas have analyte concentrations 10 fold or more above the reference range. This test was developed and its performance characteristics determined by [facility] in a manner consistent with CLIA requirements. This test has not been cleared or approved by the U.S. Food and Drug Administration. Test Performed by: [facility] [employer] [address] [place] [address] 4 FASTING 5 Test Performed by: [facility] [place] [address] 6 ADDITIONAL INFORMATION This test was developed and its performance characteristics determined by [facility] in a manner consistent with CLIA requirements. This test has not been cleared or approved by the U.S. Food and Drug Administration. Test Performed by: [facility] [employer] - [facility] [employer] [place] [id number] 7 REFERENCE VALUE <100 Reference ranges valid for >=8 hour fast. Test Performed by: [facility] [employer] [facility] [employer] [address] [place] [id number] 8 REFERENCE VALUE 44-261 (Normotensive) <400 (Hypertensive) 9 REFERENCE VALUE 138-521 (Normotensive) <900 (Hypertensive) 10 REFERENCE VALUE 233-716 (Normotensive) <1300 (Hypertensive) 11 ADDITIONAL INFORMATION This test was developed and its performance characteristics determined by [facility] in a manner consistent with CLIA requirements. This test has not been cleared or approved by the U.S. Food and Drug Administration. Test Performed by: [facility] [employer] [facility] - [address] [address] 12 ADDITIONAL INFORMATION This test was developed and its performance characteristics determined by [facility] in a manner consistent with CLIA requirements. This test has not been cleared or approved by the U.S. Food and Drug Administration. Test Performed by: [facility] [employer] [facility] [employer] [address] [place] [phone] 13 ADDITIONAL INFORMATION Liquid Chromatography-Tandem Mass Spectrometry (LC-MS/MS). Values obtained from different assay methods or kits may be different and cannot be used interchangeably. The results cannot be interpreted as absolute evidence for the presence or absence of malignant disease. This test was developed and its performance characteristics determined by [facility] in a manner consistent with CLIA requirements. This test has not been cleared or approved by the U.S. Food and Drug Administration. Test Performed by: [facility] - [address] [address] 14 ADDITIONAL INFORMATION The testing method is an immunoenzymatic assay manufactured by [employer] and performed on the [employer] DxI 800. Values obtained with different assay methods or kits may be different and cannot be used interchangeably. Test results cannot be interpreted as absolute evidence for the presence or absence of malignant disease. Alpha-Fetoprotein values are not interpretable in females for the investigation of malignant disease. Test Performed by: [facility] - [address] [address] 15 ADDITIONAL INFORMATION This test has been modified from the rodent control worker's instructions. Its performance characteristics were determined by [facility] in a manner consistent with CLIA requirements. This test has not been cleared or approved by the U.S. Food and Drug Administration. The testing method is an electrochemiluminescence assay manufactured by [employer] and performed on the Modular [employer] Sim system. Values obtained with different assay methods or kits may be different and cannot be used interchangeably. Test results cannot be interpreted as absolute evidence for the presence or absence of malignant disease. Test Performed by: [facility] - [address] [address] 16 Therapeutic target for the treatment of diabetes Mellitus patients is <7% HBA1C, and in selective patients <6.0%.Please refer to [place] [employer] Diabetic care guidelines for further information. 17 with immunofixation Copy Result to: MARILEE QUINCY ([id number]) 18 with immunofixation Copy Result to: MARILEE QUINCY ([id number]) 19 Normal Range 180 to 914 Indeterminate Range 145 to 180 Deficient Range <145 20 with immunofixation Copy Result to: ELOISE JAUREGUIS ([id number]) 21 In this sample, the concentration of methylmalonic acid (MMA) was minimally elevated. As the upper limit of the reference range varies in different laboratories from 0.4 to 0.6 nmol/mL. This finding could be considered normal, especially if the patient does not show other signs of vitamin B12 deficiency. Test Performed by: [place] [address] Gang Sawyer: Jordon Bray II, M.D., Ph.D. 22 REFERENCE VALUE <=13 (Fasting) Test Performed by: [place] [address] Gang Sawyer: Jordon Bray II, M.D., Ph.D. 23 with immunofixation Copy Result to: ELOISE JAUREGUI ([id number]) 24 with immunofixation Copy Result to: MARILEE QUINCY ([id number]) 25 Acute inflammation: >10.00 26 RESULT: No apparent monoclonal protein on serum electrophoresis. Test Performed by: [place] [address] Gang Sawyer: Jordon Bray II, M.D., Ph.D. Procedures Date Code Description Status 06/24/2018 18710 Glucose Monitoring Interpetation And Report Completed Encounters Type Date Location Provider Dx Diagnosis Office Visit 02/19/2018 Bryn Berman MD E13.8 Oth diabetes 8:40a Endocrinology of [employer] mellitus with unspecified complications C7A.8 Other malignant neuroendocrine tumors Office Visit 02/02/2018 Bryn Berman E13.8 Oth diabetes 8:00a Endocrinology of MD mellitus with [employer] unspecified complications C7A.8 Other malignant neuroendocrine tumors Office Visit 06/09/2015 [place] Olga Olvera, G62.89 Other specified 9:30a Neurologic polyneuropathies [facility] R55 Syncope and collapse Plan of Treatment Future Appointment(s):08/06/2018 9:20 am - Lenny Berman MD at [place] [facility] [place]06/24/2018 - Lenny Berman MDE13.8 Other specified diabetes mellitus with unspecified complicatNew Medication:Jardiance 10 mg - 10mg by mouth dailyBasaglar Kwikpen 100 Unit/ML - 30 units daily at bedtime, maximum dose 50 units/dayMetformin HCL ER 750 mg - take 1 tablet by mouth dailyFollow up:6 weeksInstructions:1. Change Lantus, as follows: - 12 units tonight, 06/24 - 12 units tomorrow morning, 06/25 - 28 units tomorrow evening, , and after 2. Your glucose goal is less than 140 in the morning. 3. Your glucose goal is 100-200 during the day. 4. Restart metformin XR 750mg at bedtime. 5. Start Jardiance 10mg in the morning. 6. Your blood pressure goal is less then 150/90. 7. Return in 6-8 weeks.C25.9 Malignant neoplasm of pancreas, [id number] Anxiety disorder, [id number] Essential (primary) hypertension
--- NOTE | 2018-07-14 10:57 | ED ---
Neurological HPI - HPI Summary HPI Summary: This pt is a 68 y/o male [facility] c/o difficulty focusing and ambulating for the past few weeks. Pt reports he had routine blood work yesterday ordered by Dr. Valladares. Today during his routine visit with his PCP, Dr. Eloise Jauregui, told him his lab results were abnormal and advised him to come to the ED. 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 He also notes his "legs don' t move right" and it is "hard for him to walk" and per , pt is a runner. Per , the problem with his legs is not uncommon for the past 2 years and sees a therapist for this. Pt has been told his leg problem is due to anxiety. He began to take Octreotide. Denies any pain, abd pain, chest pain, SOB. Pt was at [facility] on 06/10/18 for a possible stroke that turned out to be a past injury in his eye. However, he was transferred to [place] on 06/10 for replace his displaced stent. 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 Pt started insulin in February 2018 for recently diagnosed diabetes. Pt notes his glucose has been lately high in the 200s and 300s. He does see an activity aid. He has seen Dr. Olvera, neurologist, in the past for neuropathy from his thighs down to his toes. He was prescribed B12 vitamins and within a week his neuropathy went down to his ankles but never completely resolved. His medications include antihypertensive medications and insulin. - History of Current Complaint Chief Complaint: EDAltMentalStatus Stated Complaint: GENERAL Time Seen by Provider: 07/14/18 10:20 Hx Obtained From: Patient, Family/Director Of Healthcare Systems Onset/Duration: Started weeks ago, Still Present Current Severity: Mild Neurological Deficit Location: RLE, LLE Pain Intensity: 0 Pain Scale Used: 0-10 Numeric Character: Other: - difficulty focusing and ambulating Aggravating: Nothing Alleviating: Nothing Associated Signs and Symptoms: Negative: Pain, Fever, Chest Pain, Shortness of Breath - Allergy/Home Medications Allergies/Adverse Reactions: Allergies Allergy/AdvReac Type Severity Reaction Status Date / Time lorazepam AdvReac Severe Agitation Verified 07/14/18 09:46 Home Medications: Home Medications amLODIPine TAB* [Norvasc 5 mg TAB*] 5 mg PO DAILY 07/14/18 [History Confirmed ] PMH/Surg Hx/FS Hx/Imm Hx Endocrine/Hematology History: Reports: Hx Diabetes - not on meds, "artificial" per patient Denies: Hx Thyroid Disease Cardiovascular History: Reports: Hx Hypertension, Other Cardiovascular Problems/ Disorders - MURMER WITHOUT TREATMENT Denies: Hx Congestive Heart Failure Respiratory History: Denies: Hx Asthma, Hx Chronic Obstructive Pulmonary Disease (COPD) GI History: Denies: Hx Ulcer, Other GI Disorders History: Denies: Hx Dialysis, Hx Kidney Stones, Hx Renal Disease - Cancer History Cancer Type, 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 Hx Chemotherapy: Yes - Surgical History Surgery Procedure, Year, and Place: ABORTED WHIPPLE PROCEDURE, TONSILECTOMY, renal stone removal 2014 Infectious Disease History: No Infectious Disease History: Denies: Hx Clostridium Difficile, Hx Hepatitis, Hx Human Immunodeficiency Virus (HIV), Hx of Known/Suspected MRSA, Hx Shingles, Hx Tuberculosis, Traveled Outside the [place] in Last 30 Days - Family History Known Family History: Positive: Other - Leukemia (mother) Negative: Cardiac Disease, Hypertension, Diabetes - Social History Alcohol Use: Occasionally Hx Substance Use: No Substance Use Type: Reports: None Hx Tobacco Use: Yes Smoking Status (MU): Former Smoker Review of Systems Negative: Fever, Chills Negative: Chest Pain Negative: Shortness Of Breath Negative: Abdominal Pain Neurological: Other - POS: difficulty focusing and ambulating All Other Systems Reviewed And Are Negative: Yes Physical Exam - Summary Physical Exam Summary: VITAL SIGNS: Reviewed. GENERAL: Patient is a well-developed and nourished male who is lying comfortable in the stretcher. Patient is not in any acute respiratory distress. HEAD AND FACE: Normocephalic EYES: PERRLA, EOMI x 2. EARS: Hearing grossly intact. MOUTH: Oropharynx within normal limits. NECK: Supple, trachea is midline, no adenopathy, no JVD, no carotid bruit. CHEST: Symmetric, no tenderness at palpation LUNGS: Clear to auscultation bilaterally. No wheezing or crackles. CVS: Regular rate and rhythm, S1 and S2 present, no murmurs or gallops appreciated. ABDOMEN: Soft, non-tender. Bowel sounds are normal. No abdominal abnormal pulsations. EXTREMITIES: Full ROM in all major joints, no edema, no cyanosis or clubbing. NEURO: Alert and oriented x 3. No acute neurological deficits. Speech is normal and follows commands. SKIN: Dry and warm Triage Information Reviewed: Yes Vital Signs On Initial Exam: Initial Vitals Temp Pulse Resp BP Pulse Ox 96.6 F 72 16 162/107 96 07/14/18 09:46 07/14/18 09:46 07/14/18 09:46 07/14/18 09:46 07/14/18 09:46 Vital Signs Reviewed: Yes Diagnostics - Vital Signs Vital Signs Temp Pulse Resp BP Pulse Ox 07/14/18 09:46 96.6 F 72 16 162/107 96 - Laboratory Result Diagrams: 07/14/18 10:51 07/14/18 10:51 Lab Statement: Any lab studies that have been ordered have been reviewed, and results considered in the medical decision making process. - Radiology Chest XR Radiology Interpretation Completed By: Radiologist Summary of Radiographic Findings: IMPRESSION: No evidence for acute disease. Dr. Mock has reviewed this report. - EKG 10:53 Cardiac Rate: NL - at 67 bpm EKG Rhythm: Sinus Rhythm EKG Comparison: No Significant Change - similar to past on 06/10/18. Summary of EKG Findings: LBBB. Re-Evaluation - Re-Evaluation First Eval Re-Evaluation Time: 12:40 Change: Improved Comment: Reviewed lab and CXR with pt and . Pt will be discharged home with follow up from PCP and neurology. Course/Dx - Course Assessment/Plan: Patient is a 68-year-old male who presents to the emergency department after he was called by his primary care physician and was requested to come to the emergency room to recheck abnormal blood work. Blood work without any significant abnormality except for carbon dioxide of 19, BUN is 37, glucose 237, calcium is 10.5, AST 62, alkaline phosphatase 246, ammonia is 54 and vitamin B12 more than 1450. Urinalysis is negative for UTI. Urine toxicology is negative. Chest x-ray impression: no evidence for acute disease. In the ED course the patient is at baseline. Therefore I believe the patient can be discharged home with follow-up with neurology and the primary care physician. Patient is in better control of the uncontrolled diabetes. However after hydration and insulin the patients symptoms have significantly improved. I discussed all the findings and test results with the patient. Patient was instructed to return to the emergency room immediately if any of the symptoms return or worsens. Plan of care was discussed with the patient and understands and agrees. All questions were answered at patient satisfaction. There were no further complaints or concerns. Lung exam before discharge: CTA B/L. Good air exchange. No wheezing or crackles heard. CVS: S1 and S2 present. No murmurs appreciated. Patient is alert and oriented x 3. Patient is hemodynamically stable. Patient will be discharged home with follow up from his PCP in the next 2-3 days. - Diagnoses Provider Diagnoses: Uncontrolled diabetes mellitus, Hypercalcemia, Dehydration Discharge - Sign-Out/Discharge Documenting (check all that apply): Patient Departure - Discharge home Patient Received Moderate/Deep Sedation with Procedure: No - Discharge Plan Condition: Stable Disposition: HOME Patient Education Materials: Dehydration (ED), Hypercalcemia (ED), Diabetic Hyperglycemia (ED) Referrals: Andrea Bateman MD [Medical Doctor] - Eloise Jauregui MD [Primary Care Provider] - Additional Instructions: Follow up with your primary care provider in 2-3 days and neurology. PLEASE FOLLOW UP WITH YOUR PRIMARY CARE PROVIDER WITHIN ONE WEEK FOR HIGH BLOOD PRESSURE NOTED TODAY RETURN TO THE ED FOR ANY WORSENING OR NEW SYMPTOMS. - Billing Disposition and Condition Condition: STABLE Disposition: Home - Attestation Statements Document Initiated by Jenaro: Yes Documenting Scribe: Opal Auguste Provider For Whom Jenaro is Documenting (Include Credential): Kurt Mock MD Scribe Attestation: IOpal, scribed for Kurt Mock MD on 07/15/18 at 1010. Scribe Documentation Reviewed: Yes Provider Attestation: The documentation as recorded by the Opal rai accurately reflects the service I personally performed and the decisions made by me, Kurt Mock MD Status of Scribe Document: Viewed
[2018-07-14 11:02] LABS: ABS Basophils 0.1 10^3/ul (0-0.2); ABS Eosinophils 0.1 10^3/ul (0-0.6); ABS Lymphocytes 1.5 10^3/ul (1.0-4.8); ABS Monocytes 0.6 10^3/ul (0-0.8); ABS Neutrophils 5.3 10^3/ul (1.5-7.7); ABS Nucleated RBC 0 10^3/ul; Eosinophil % 1.6 %; Hematocrit 45 % (42-52); Hemoglobin 15.3 g/dl (14.0-18.0); Lymphocyte % 19.3 %; Mean Corpuscular HGB Conc 34 g/dl (31-36); Mean Corpuscular Hemoglobin 31 pg (27-31); Mean Corpuscular Volume 90 fL (80-94); Mean Platelet Volume 8.6 fL (7.4-10.4); Nucleated Red Blood Cells % 0; Platelet Count 138 10^3/ul (150-450); Red Blood Count 4.97 10^6/ul (4.00-5.40); Red Cell Distribution Width 15 % (10.5-15); White Blood Count 7.5 10^3/ul (3.5-10.8)
[2018-07-14 11:22] LABS: ALT 62 U/L (7-52); AST 28 U/L (13-39); Albumin 4.5 g/dL (3.2-5.2); Albumin/Globulin Ratio 1.5 (1-3); Alkaline Phosphatase 246 U/L (34-104); Anion Gap 8 mmol/L (2-11); BUN/Creatinine Ratio 32.2 (8-20); Blood Urea Nitrogen 37 mg/dL (6-24); CO2 Carbon Dioxide 19 mmol/L (22-32); Calcium 10.5 mg/dL (8.6-10.3); Chloride 108 mmol/L (101-111); Creatine Kinase 42 U/L (10-223); EGFR African American 76.3 (>60); EGFR Non-African American 63.1 (>60); Glucose 237 mg/dL (70-100); Potassium 4.4 mmol/L (3.5-5.0); Sodium 135 mmol/L (135-145); Total Protein 7.5 g/dL (6.4-8.9)
[2018-07-14 11:23] LABS: Troponin I 0.01 ng/mL (<0.04)
[2018-07-14 11:27] LABS: Urine Appearance Clear; Urine Bacteria Absent (Absent); Urine Bilirubin Negative (Negative); Urine Blood Negative (Negative); Urine Color Yellow; Urine Glucose 1+(50 mg/dL) (Negative); Urine Ketones Negative (Negative); Urine Nitrite Negative (Negative); Urine Protein 1+(30 mg/dL) (Negative); Urine Red Blood Cell Trace(0-2/hpf) (Absent); Urine Specific Gravity 1.023 (1.010-1.030); Urine Urobilinogen Negative (Negative); Urine White Blood Cell Trace(0-5/hpf) (Absent)
[2018-07-14 11:41] LABS: Acetaminophen < 15 mcg/mL; Alcohol < 10 mg/dL (<10); Salicylate < 2.50 mg/dL (<30)
[2018-07-14 11:43] LABS: Barbiturates Urine Screen None Detected (None Detect); Benzodiazepine Urine Screen None Detected (None Detect); Urine Cannabinoids Screen None Detected (None Detect)
[2018-07-14 11:50] LABS: TSH (Thyroid Stimulating Horm) 2.62 mcIU/mL (0.34-5.60)
[2018-07-14] MEDS ORDERED: Insulin REGULAR(*) 1 UNITS UNIT IV PUSH ONE ×2 (12:16→12:18)
[2018-07-14 12:48] VITALS: BP 161/89
== END 2018-07-14 12:51 | disposition home or self-care (01) ==
LOC: ED 09:41
DX: E11.65 Type 2 diabetes mellitus with hyperglycemia (principal); Z79.4 Long term (current) use of insulin; E83.52 Hypercalcemia; E86.0 Dehydration; R41.840 Attention and concentration deficit; R26.2 Difficulty in walking, not elsewhere classified; I44.7 Left bundle-branch block, unspecified; I10 Essential (primary) hypertension; Z88.8 Allergy status to other drugs, medicaments and biological substances; Z87.891 Personal history of nicotine dependence
CPT/HCPCS: 36415; 71045; 80053; 80307; 80320; 80329; 81003; 81015; 82140; 82550; 82607; 83605; 83735; 84443; 84484; 85025; 87086; 93005; 96374; 99283; G0480

== ENCOUNTER 2020-11-15 08:13 | Inpatient (IN) ==
[2020-11-15 08:36] LABS: Hemoglobin 5.4 g/dL (14.0-18.0); Mean Platelet Volume 8.1 fL (7.4-10.4); Platelet Count 149 10^3/uL (150-450)
[2020-11-15 09:07] LABS: Activated Partial Thrombo Time 29.3 seconds (26.0-38.0); Fibrinogen 363.2 mg/dL (110.8-404.3)
[2020-11-15 09:15] LABS: ABS Eosinophils 0.1 10^3/ul (0-0.6); ABS Lymphocytes 1.3 10^3/ul (1.0-4.8); ABS Monocytes 0.9 10^3/ul (0-0.8); ABS Neutrophils 7.8 10^3/ul (1.5-7.7); Eosinophil % 0.9 %; Hematocrit 16 % (42-52); Lymphocyte % 12.4 %; Mean Corpuscular HGB Conc 34 g/dL (31-36); Mean Corpuscular Hemoglobin 32 pg (27-31); Mean Corpuscular Volume 94 fL (80-94); Nucleated Red Blood Cells % 0.1; Red Blood Count 1.69 10^6 /uL (4.18-5.48); Red Cell Distribution Width 16 % (10-15); White Blood Count 10.1 10^3/uL (3.5-10.8)
[2020-11-15 09:22] LABS: Albumin 2.1 g/dL (3.2-5.2); Albumin/Globulin Ratio 0.8 (1-3); Calcium 7.1 mg/dL (8.6-10.3); EGFR African American 73.6 (>60); EGFR Non-African American 60.9 (>60); Globulin 2.8 g/dL (2-4); Potassium 2.9 mmol/L (3.5-5.0); Total Bilirubin 0.5 mg/dL (0.2-1.0); Total Protein 4.9 g/dL (6.4-8.9)
[2020-11-15] MEDS ORDERED: Octreotide Acetate 50 MCG in NS 0.9% 50 ML 50 ML IV ONE (09:39)
[2020-11-15] MEDS ORDERED: Pantoprazole VIAL 40 MG VIAL IV ONE (09:40)
[2020-11-15] MEDS ORDERED: Pantoprazole 80 mg in NS BAG 80 MG/250 ML BAG IV ONE (09:40)
[2020-11-15] MEDS ORDERED: Potassium Chlor 20 meq TAB.ER PO ONE (09:55)
[2020-11-15] MEDS ORDERED: Iohexol 300 (CONTRAST) 10 ML SDV IV ONE (09:55)
[2020-11-15] MEDS ORDERED: KCL 10 MEQ/50 ML IVPREMIX 10 MEQ/50 ML BAG IV ONE (09:56)
[2020-11-15] MEDS ORDERED: Octreotide Acetate 500 MCG in NS 0.9% 100 ml BAG 100 ML IV SCH (10:00)
[2020-11-15] MEDS ORDERED: Iodixanol (CONTRAST) 320 MG/ML 100 ML SDV IV ONE (10:18)
[2020-11-15 10:52] LABS: Hematocrit 19 % (42-52); Hemoglobin 6.4 g/dL (14.0-18.0)
[2020-11-15 12:07] LABS: ABS Lymphocytes 0.6 10^3/ul (1.0-4.8); ABS Monocytes 0.6 10^3/ul (0-0.8); Eosinophil % 0.5 %; Hematocrit 20 % (42-52); Hemoglobin 6.8 g/dL (14.0-18.0); Lymphocyte % 8.8 %; Mean Corpuscular HGB Conc 34 g/dL (31-36); Mean Corpuscular Hemoglobin 30 pg (27-31); Mean Corpuscular Volume 89 fL (80-94); Mean Platelet Volume 8.2 fL (7.4-10.4); Platelet Count 122 10^3/uL (150-450); Red Blood Count 2.24 10^6 /uL (4.18-5.48); Red Cell Distribution Width 18 % (10-15); White Blood Count 7.3 10^3/uL (3.5-10.8)
[2020-11-15] MEDS ORDERED: Etomidate 20 mg/10 ml 2 MG/ML 10 ml VIAL ONE ×2 (12:07→12:08)
[2020-11-15] MEDS ORDERED: Rocuronium 50 mg VIAL 10 mg/ml 5 ml VIAL (50 mg) ONE (12:07)
[2020-11-15] MEDS ORDERED: Midazolam 2 mg/2 ml VIAL 1 mg/ml 2 ml VIAL (2 mg) ONE (12:08)
[2020-11-15] MEDS ORDERED: fentaNYL 100 mcg/2 ml 50 MCG/ML VIAL ONE ×2 (12:08→13:27)
[2020-11-15 12:20] LABS: Calcium 7.1 mg/dL (8.6-10.3); EGFR African American 82.4 (>60); EGFR Non-African American 68.1 (>60); Potassium 3.4 mmol/L (3.5-5.0)
[2020-11-15] MEDS ORDERED: Dexamethasone IV 4 MG/ML VIAL 1 ml VIAL ONE (12:42)
[2020-11-15] MEDS ORDERED: Ondansetron 4 mg VIAL 2 MG/ML 2 ml VIAL ONE (12:42)
[2020-11-15] MEDS: fentaNYL 100 mcg/2 ml 50 MCG/ML VIAL IV SLOW PU PRN ×2 (13:35→18:21)
[2020-11-15] MEDS: Propofol 10 mg/ml 100 ML BTL 100 ML IV SCH ×3 (13:51→22:24)
[2020-11-15 14:26] LABS: Urine Appearance Clear; Urine Bilirubin Negative (Negative); Urine Blood Negative (Negative); Urine Color Yellow; Urine Glucose Negative (Negative); Urine Ketones Negative (Negative); Urine Nitrite Negative (Negative); Urine Protein Negative (Negative); Urine Specific Gravity 1.023 (1.002-1.030); Urine Urobilinogen Negative (Negative)
[2020-11-15] MEDS: KCL 20 MEQ/100 ML IVPREMIX 20 MEQ/100 ML BAG IV SCH ×2 (14:58→17:42)
[2020-11-15] MEDS: Chlorhexidine MOUTHWASH 0.12% 15 ML UDC SWISH SPIT SCH (18:11)
[2020-11-15] MEDS ORDERED: Midazolam 2 mg/2 ml VIAL 1 mg/ml 2 ml VIAL (2 mg) IV SLOW PU PRN (18:34)
[2020-11-15 20:01] LABS: Hematocrit 22 % (42-52); Hemoglobin 7.6 g/dL (14.0-18.0)
[2020-11-15] MEDS: Octreotide Acetate 500 MCG in NS 0.9% 100 ML IV SCH ×2 (20:25→21:52)
[2020-11-15] MEDS: cefTRIAXone 1 gm/50 mL NS BAG 1 GM/50 ML BAG IVPB SCH (20:25)
[2020-11-15] MEDS: Pantoprazole 80 mg IN NS 80 MG/250 ML BAG IV SCH (20:50)
[2020-11-15] MEDS: NORMOSOL-R pH 7.4 1000 mL BAG 1,000 ML IV SCH (21:22)
[2020-11-16] MEDS: Chlorhexidine MOUTHWASH 0.12% 15 ML UDC SWISH SPIT SCH ×4 (00:21→11:38)
[2020-11-16] MEDS: fentaNYL 100 mcg/2 ml 50 MCG/ML VIAL IV SLOW PU PRN ×2 (02:25→06:07)
[2020-11-16] MEDS: Propofol 10 mg/ml 100 ML BTL 100 ML IV SCH ×2 (03:38→07:13)
[2020-11-16 04:23] LABS: ABS Eosinophils 0.1 10^3/ul (0-0.6); ABS Lymphocytes 0.7 10^3/ul (1.0-4.8); ABS Monocytes 0.6 10^3/ul (0-0.8); Eosinophil % 0.8 %; Hematocrit 22 % (42-52); Hemoglobin 7.7 g/dL (14.0-18.0); Mean Corpuscular HGB Conc 34 g/dL (31-36); Mean Corpuscular Hemoglobin 31 pg (27-31); Mean Corpuscular Volume 90 fL (80-94); Mean Platelet Volume 8.5 fL (7.4-10.4); Platelet Count 141 10^3/uL (150-450); Red Blood Count 2.47 10^6 /uL (4.18-5.48); Red Cell Distribution Width 18 % (10-15); White Blood Count 7.4 10^3/uL (3.5-10.8)
[2020-11-16 04:28] LABS: INR 1.3 (0.86-1.15)
[2020-11-16 04:37] LABS: Calcium 6.7 mg/dL (8.6-10.3); EGFR African American 68.3 (>60); EGFR Non-African American 56.4 (>60); Magnesium 1.7 mg/dL (1.9-2.7); Phosphorus 3.1 mg/dL (2.5-5.0); Potassium 4.3 mmol/L (3.5-5.0)
[2020-11-16] MEDS: Pantoprazole 80 mg IN NS 80 MG/250 ML BAG IV SCH (07:13)
[2020-11-16] MEDS: Octreotide Acetate 500 MCG in NS 0.9% 100 ML IV SCH ×2 (07:13→16:24)
[2020-11-16] MEDS: NORMOSOL-R pH 7.4 1000 mL BAG 1,000 ML IV SCH ×3 (07:13→23:25)
[2020-11-16] MEDS ORDERED: Magnesium Sulfate 2 gm BAG 2 GM/50 ML BAG IVPB ONE (07:33)
[2020-11-16] MEDS: CMCS: Brimonidine P 0.15%(NF) OPH SOL 5 ML BTL LEFT EYE SCH (07:34)
[2020-11-16] MEDS: Timolol 0.5% OPTH.SOL BTL LEFT EYE SCH (07:34)
[2020-11-16] MEDS ORDERED: NORMOSOL-R pH 7.4 1000 mL BAG 1,000 ML IV ONE (09:00)
[2020-11-16] MEDS ORDERED: Calcium Gluconate 2 GM in NS 0.9% 100 ml BAG 100 ML IV ONE (09:13)
[2020-11-16] MEDS ORDERED: Dexmedetomidine 1,000 MCG in NS 0.9% 250 ml 240 ML IV SCH (10:00)
[2020-11-16 10:34] LABS: PCO2 Arterial 26 mmHg (35-45); PO2 Arterial 98 mmHg (80-100)
[2020-11-16] MEDS ORDERED: Furosemide 40 mg/4 ml IV VIAL IV ONE (10:57)
[2020-11-16] MEDS ORDERED: Furosemide 20 mg/2 ml IV VIAL IV ONE (10:57)
[2020-11-16] MEDS ORDERED: Furosemide 20 mg/2 ml IV VIAL ONE (10:58)
[2020-11-16] MEDS ORDERED: Chlorhexidine MOUTHWASH 0.12% 15 ML UDC SWISH SPIT SCH (12:00)
[2020-11-16] MEDS ORDERED: Propofol 10 mg/ml 100 ML BTL 100 ML ONE (13:01)
[2020-11-16] MEDS ORDERED: fentaNYL 100 mcg/2 ml 50 MCG/ML VIAL ONE (14:25)
[2020-11-16 20:18] LABS: ABS Eosinophils 0.1 10^3/ul (0-0.6); ABS Lymphocytes 0.5 10^3/ul (1.0-4.8); ABS Monocytes 0.5 10^3/ul (0-0.8); ABS Neutrophils 5.3 10^3/ul (1.5-7.7); Hematocrit 24 % (42-52); Hemoglobin 8.2 g/dL (14.0-18.0); Lymphocyte % 8.4 %; Mean Corpuscular HGB Conc 34 g/dL (31-36); Mean Corpuscular Hemoglobin 31 pg (27-31); Mean Corpuscular Volume 91 fL (80-94); Mean Platelet Volume 8.1 fL (7.4-10.4); Platelet Count 149 10^3/uL (150-450); Red Blood Count 2.68 10^6 /uL (4.18-5.48); Red Cell Distribution Width 18 % (10-15); White Blood Count 6.5 10^3/uL (3.5-10.8)
[2020-11-16] MEDS: Pantoprazole VIAL 40 MG VIAL IV SCH (21:03)
[2020-11-16] MEDS: cefTRIAXone 1 gm/50 mL NS BAG 1 GM/50 ML BAG IVPB SCH (21:03)
[2020-11-17] MEDS: Octreotide Acetate 500 MCG in NS 0.9% 100 ML IV SCH ×3 (03:06→23:05)
[2020-11-17 05:37] LABS: Hematocrit 22 % (42-52); Hemoglobin 7.6 g/dL (14.0-18.0); Mean Corpuscular HGB Conc 35 g/dL (31-36); Mean Corpuscular Hemoglobin 31 pg (27-31); Mean Corpuscular Volume 90 fL (80-94); Mean Platelet Volume 8.3 fL (7.4-10.4); Platelet Count 140 10^3/uL (150-450); Red Blood Count 2.43 10^6 /uL (4.18-5.48); Red Cell Distribution Width 18 % (10-15); White Blood Count 4.9 10^3/uL (3.5-10.8)
[2020-11-17 05:39] LABS: INR 1.12 (0.86-1.15)
[2020-11-17 05:54] LABS: Albumin 2.2 g/dL (3.2-5.2); Albumin/Globulin Ratio 0.7 (1-3); Direct Bilirubin 0.2 mg/dL (0.03-0.18); EGFR Non-African American 65.3 (>60); Indirect Bilirubin 0.5 mg/dL (0.3-1.0); Phosphorus 1.7 mg/dL (2.5-5.0); Potassium 3.9 mmol/L (3.5-5.0); Total Bilirubin 0.7 mg/dL (0.2-1.0); Total Protein 5.2 g/dL (6.4-8.9)
[2020-11-17 05:57] LABS: Calcium 6.3 mg/dL (8.6-10.3)
[2020-11-17 06:40] LABS: ABS Lymphocytes 0.6 10^3/ul (1.0-4.8); ABS Monocytes 0.5 10^3/ul (0-0.8); ABS Neutrophils 3.8 10^3/ul (1.5-7.7); Eosinophil % 0.9 %; Lymphocyte % 12.9 %; RBC Morphology Normal (Normal)
[2020-11-17] MEDS ORDERED: Calcium Gluconate 2 GM in NS 0.9% 100 ml BAG 100 ML IV ONE (08:30)
[2020-11-17] MEDS ORDERED: Potassium Phosphate IV 15 MMOLE in NS 0.9% 250 ml 250 ML IVPB ONE (09:00)
[2020-11-17] MEDS: Pantoprazole VIAL 40 MG VIAL IV SCH ×2 (09:33→21:51)
[2020-11-17] MEDS: Timolol 0.5% OPTH.SOL BTL LEFT EYE SCH (09:33)
[2020-11-17] MEDS: CMCS: Brimonidine P 0.15%(NF) OPH SOL 5 ML BTL LEFT EYE SCH (09:33)
[2020-11-17] MEDS: Potassium & Sodium Phos 250 mg = 1 PACKET PO SCH ×3 (09:48→21:52)
[2020-11-17 12:55] LABS: Hematocrit 28 % (42-52); Hemoglobin 9.5 g/dL (14.0-18.0)
[2020-11-17] MEDS: cefTRIAXone 1 gm/50 mL NS BAG 1 GM/50 ML BAG IVPB SCH (19:50)
[2020-11-18] MEDS ORDERED: LACTATED RINGERS IV SCH (04:00)
[2020-11-18 04:24] LABS: ABS Lymphocytes 0.5 10^3/ul (1.0-4.8); ABS Monocytes 0.3 10^3/ul (0-0.8); ABS Neutrophils 7.1 10^3/ul (1.5-7.7); Eosinophil % 0.3 %; Hematocrit 26 % (42-52); Hemoglobin 8.8 g/dL (14.0-18.0); Lymphocyte % 6.5 %; Mean Corpuscular HGB Conc 34 g/dL (31-36); Mean Corpuscular Hemoglobin 31 pg (27-31); Mean Corpuscular Volume 92 fL (80-94); Mean Platelet Volume 8.1 fL (7.4-10.4); Platelet Count 147 10^3/uL (150-450); Red Blood Count 2.85 10^6 /uL (4.18-5.48); Red Cell Distribution Width 18 % (10-15)
[2020-11-18 04:29] LABS: INR 1.25 (0.86-1.15)
[2020-11-18 04:41] LABS: Albumin 2.5 g/dL (3.2-5.2); Albumin/Globulin Ratio 0.7 (1-3); EGFR African American 75.9 (>60); EGFR Non-African American 62.7 (>60); Globulin 3.6 g/dL (2-4); Magnesium 1.7 mg/dL (1.9-2.7); Total Bilirubin 3.3 mg/dL (0.2-1.0); Total Protein 6.1 g/dL (6.4-8.9)
[2020-11-18] MEDS ORDERED: Magnesium Sulfate 2 gm BAG 2 GM/50 ML BAG IVPB ONE (04:43)
[2020-11-18] MEDS ORDERED: Piperacillin/Tazobac ADVAN 3.375 GM in NS 0.9% 100 ml BAG 100 ML IV ONE (04:56)
[2020-11-18] MEDS ORDERED: Zosyn per Pharmacy NOTE FOLLOW UP SCH (05:00)
[2020-11-18 07:39] LABS: Urine Appearance Clear; Urine Bilirubin Negative (Negative); Urine Blood 1+ (Negative); Urine Color Amber; Urine Glucose Negative (Negative); Urine Ketones Negative (Negative); Urine Nitrite Negative (Negative); Urine Protein Negative (Negative); Urine Specific Gravity 1.014 (1.002-1.030); Urine Urobilinogen Negative (Negative)
[2020-11-18 07:42] LABS: Urine Bacteria Absent (Absent); Urine Red Blood Cell Trace(0-2/hpf) (Absent); Urine Squamous Epithelial Cell Present (Absent); Urine White Blood Cell Trace(0-5/hpf) (Absent)
[2020-11-18] MEDS ORDERED: ZOSYN 3.375 GM Q8H per EXTENDED INFUSION IV SCH (10:00)
[2020-11-18 10:06] LABS: Direct Bilirubin 2.6 mg/dL (0.03-0.18)
[2020-11-18] MEDS ORDERED: Vancomycin 1,000 MG in NS 0.9% 250 ml 250 ML IVPB ONE (10:30)
[2020-11-18] MEDS: Cefepime 2 GM in Dextrose 2 GM/50 ML BAG IV SCH ×2 (10:43→21:48)
[2020-11-18] MEDS: Pantoprazole VIAL 40 MG VIAL IV SCH ×2 (10:44→21:44)
[2020-11-18] MEDS: Potassium & Sodium Phos 250 mg = 1 PACKET PO SCH ×4 (10:44→21:43)
[2020-11-18] MEDS: Octreotide Acetate 500 MCG in NS 0.9% 100 ML IV SCH ×2 (11:05→21:36)
[2020-11-18] MEDS: Timolol 0.5% OPTH.SOL BTL LEFT EYE SCH (11:07)
[2020-11-18] MEDS: CMCS: Brimonidine P 0.15%(NF) OPH SOL 5 ML BTL LEFT EYE SCH (11:07)
[2020-11-18] MEDS ORDERED: Vancomycin per Pharmacy 1 EA NOTE FOLLOW UP PRN (12:18)
[2020-11-18 12:43] LABS: ABS Lymphocytes 0.4 10^3/ul (1.0-4.8); ABS Monocytes 0.7 10^3/ul (0-0.8); Eosinophil % 0.1 %; Hematocrit 24 % (42-52); Hemoglobin 7.7 g/dL (14.0-18.0); Lymphocyte % 3.5 %; Mean Corpuscular HGB Conc 33 g/dL (31-36); Mean Corpuscular Hemoglobin 30 pg (27-31); Mean Corpuscular Volume 92 fL (80-94); Mean Platelet Volume 8.2 fL (7.4-10.4); Platelet Count 132 10^3/uL (150-450); Red Blood Count 2.57 10^6 /uL (4.18-5.48); Red Cell Distribution Width 18 % (10-15); White Blood Count 12.3 10^3/uL (3.5-10.8)
[2020-11-18 12:59] LABS: Albumin 2.2 g/dL (3.2-5.2); Albumin/Globulin Ratio 0.7 (1-3); Calcium 6.7 mg/dL (8.6-10.3); EGFR African American 65.8 (>60); EGFR Non-African American 54.4 (>60); Potassium 3.5 mmol/L (3.5-5.0); Total Bilirubin 3.4 mg/dL (0.2-1.0); Total Protein 5.2 g/dL (6.4-8.9)
[2020-11-18] MEDS ORDERED: Lactulose 30 ml UDC PO SCH (14:00)
[2020-11-18 15:36] LABS: Body Fluid Source Peritonial Fluid
[2020-11-18] MEDS ORDERED: Albumin Human 25% 12.5 GM/50 ML BTL IV ONE (16:30)
[2020-11-18 16:58] LABS: Body Fluid WBC 632 /mcL
[2020-11-18] MEDS ORDERED: ALBUMIN HUMAN 25% IV ONE (17:00)
[2020-11-18 17:51] LABS: Body Fluid Mono 60 %; Body Fluid Total Cells Counted 200
[2020-11-18 18:12] LABS: Body Fluid Appearance Clear; Body Fluid Color Yellow
[2020-11-18 20:02] LABS: Hematocrit 24 % (42-52)
[2020-11-19] MEDS: Vancomycin 1000 MG in NS 0.9% 250 ML IVPB SCH ×2 (00:11→12:17)
[2020-11-19 05:06] LABS: ABS Basophils 0.1 10^3/ul (0-0.2); ABS Eosinophils 0.1 10^3/ul (0-0.6); ABS Lymphocytes 0.4 10^3/ul (1.0-4.8); ABS Monocytes 0.7 10^3/ul (0-0.8); ABS Neutrophils 10.8 10^3/ul (1.5-7.7); Eosinophil % 0.8 %; Hematocrit 24 % (42-52); Lymphocyte % 3.1 %; Mean Corpuscular HGB Conc 34 g/dL (31-36); Mean Corpuscular Hemoglobin 31 pg (27-31); Mean Corpuscular Volume 91 fL (80-94); Mean Platelet Volume 8.4 fL (7.4-10.4); Platelet Count 113 10^3/uL (150-450); Red Blood Count 2.62 10^6 /uL (4.18-5.48); Red Cell Distribution Width 18 % (10-15)
[2020-11-19 05:11] LABS: INR 1.6 (0.86-1.15)
[2020-11-19 05:26] LABS: Albumin 2.3 g/dL (3.2-5.2); Albumin/Globulin Ratio 0.8 (1-3); Calcium 6.6 mg/dL (8.6-10.3); Direct Bilirubin 3.1 mg/dL (0.03-0.18); EGFR African American 69.5 (>60); EGFR Non-African American 57.5 (>60); Indirect Bilirubin 0.9 mg/dL (0.3-1.0); Magnesium 1.8 mg/dL (1.9-2.7); Phosphorus 2.2 mg/dL (2.5-5.0); Potassium 3.6 mmol/L (3.5-5.0); Total Protein 5.3 g/dL (6.4-8.9)
[2020-11-19] MEDS: Octreotide Acetate 500 MCG in NS 0.9% 100 ML IV SCH ×3 (10:01→21:07)
[2020-11-19] MEDS: Cefepime 2 GM in Dextrose 2 GM/50 ML BAG IV SCH ×2 (10:09→21:59)
[2020-11-19] MEDS: Timolol 0.5% OPTH.SOL BTL LEFT EYE SCH (10:09)
[2020-11-19] MEDS: Potassium & Sodium Phos 250 mg = 1 PACKET PO SCH ×3 (10:10→20:35)
[2020-11-19] MEDS: Pantoprazole VIAL 40 MG VIAL IV SCH ×2 (10:11→20:35)
[2020-11-19] MEDS: CMCS: Brimonidine P 0.15%(NF) OPH SOL 5 ML BTL LEFT EYE SCH (11:10)
[2020-11-19] MEDS ORDERED: Magnesium Sulfate 2 gm BAG 2 GM/50 ML BAG IVPB ONE (18:56)
[2020-11-19] MEDS ORDERED: Octreotide Acetate 500 MCG in NS 0.9% 100 ML IV SCH (21:00)
[2020-11-19] MEDS: KCL 10 MEQ/50 ML IVPREMIX 10 MEQ/50 ML BAG IV SCH (22:45)
[2020-11-20 00:12] LABS: Albumin 2.4 g/dL (3.2-5.2); Albumin/Globulin Ratio 0.7 (1-3); Calcium 6.9 mg/dL (8.6-10.3); EGFR African American 65.3 (>60); EGFR Non-African American 53.9 (>60); Globulin 3.3 g/dL (2-4); Total Bilirubin 4.4 mg/dL (0.2-1.0); Total Protein 5.7 g/dL (6.4-8.9)
[2020-11-20] MEDS: Vancomycin 1000 MG in NS 0.9% 250 ML IVPB SCH ×2 (00:55→13:08)
[2020-11-20] MEDS ORDERED: KCL 10 MEQ/50 ML IVPREMIX 10 MEQ/50 ML BAG ONE (04:36)
[2020-11-20] MEDS: KCL 10 MEQ/50 ML IVPREMIX 10 MEQ/50 ML BAG IV SCH (04:40)
[2020-11-20 06:52] LABS: ABS Eosinophils 0.1 10^3/ul (0-0.6); ABS Lymphocytes 0.4 10^3/ul (1.0-4.8); ABS Monocytes 0.6 10^3/ul (0-0.8); ABS Neutrophils 10.1 10^3/ul (1.5-7.7); Eosinophil % 1.2 %; Hematocrit 26 % (42-52); Hemoglobin 8.6 g/dL (14.0-18.0); Lymphocyte % 3.8 %; Mean Corpuscular HGB Conc 34 g/dL (31-36); Mean Corpuscular Hemoglobin 31 pg (27-31); Mean Corpuscular Volume 91 fL (80-94); Platelet Count 131 10^3/uL (150-450); Red Blood Count 2.81 10^6 /uL (4.18-5.48); Red Cell Distribution Width 18 % (10-15); White Blood Count 11.3 10^3/uL (3.5-10.8)
[2020-11-20] MEDS: Octreotide Acetate 500 MCG in NS 0.9% 100 ML IV SCH (07:03)
[2020-11-20 07:07] LABS: Magnesium 2.3 mg/dL (1.9-2.7)
[2020-11-20 07:19] LABS: INR 1.6 (0.86-1.15)
[2020-11-20] MEDS: Pantoprazole VIAL 40 MG VIAL IV SCH ×2 (10:11→22:22)
[2020-11-20] MEDS: Timolol 0.5% OPTH.SOL BTL LEFT EYE SCH (10:12)
[2020-11-20] MEDS: CMCS: Brimonidine P 0.15%(NF) OPH SOL 5 ML BTL LEFT EYE SCH (10:12)
[2020-11-20] MEDS: Potassium & Sodium Phos 250 mg = 1 PACKET PO SCH ×3 (10:12→22:21)
[2020-11-20] MEDS: Cefepime 2 GM in Dextrose 2 GM/50 ML BAG IV SCH ×2 (10:12→22:21)
[2020-11-20 10:13] LABS: Albumin 2.2 g/dL (3.2-5.2); Albumin/Globulin Ratio 0.7 (1-3); Calcium 6.7 mg/dL (8.6-10.3); EGFR African American 64.7 (>60); EGFR Non-African American 53.5 (>60); Globulin 3.1 g/dL (2-4); Potassium 4.1 mmol/L (3.5-5.0); Total Bilirubin 4.2 mg/dL (0.2-1.0); Total Protein 5.3 g/dL (6.4-8.9)
[2020-11-20] MEDS ORDERED: Vancomycin Trough Check NOTE FOLLOW UP ONE (11:30)
[2020-11-20 12:22] LABS: EGFR African American 64.1 (>60)
[2020-11-20 12:54] LABS: Vancomycin Trough 15.4 mcg/mL
[2020-11-20 13:26] LABS: Albumin, BF 0.5 g/dL; Fluid Type, Albumin PERITONEAL; Glucose, BF 256 mg/dL
[2020-11-20 13:28] LABS: Lactate Dehydrogenase, BF 50 U/L
[2020-11-20 13:29] LABS: Fluid Type, Protein, Total PERITONEAL; Total Protein, BF 0.8 g/dL
[2020-11-21] MEDS: Vancomycin 750 MG in NS 0.9% 250 ML IVPB SCH ×3 (00:52→23:12)
[2020-11-21] MEDS: Potassium & Sodium Phos 250 mg = 1 PACKET PO SCH ×3 (08:39→21:20)
[2020-11-21] MEDS: Timolol 0.5% OPTH.SOL BTL LEFT EYE SCH (08:43)
[2020-11-21] MEDS: Pantoprazole VIAL 40 MG VIAL IV SCH ×2 (08:43→21:20)
[2020-11-21] MEDS: CMCS: Brimonidine P 0.15%(NF) OPH SOL 5 ML BTL LEFT EYE SCH (08:43)
[2020-11-21] MEDS: Cefepime 2 GM in Dextrose 2 GM/50 ML BAG IV SCH ×2 (10:03→21:20)
[2020-11-21 11:40] LABS: ABS Basophils 0.1 10^3/ul (0-0.2); ABS Eosinophils 0.1 10^3/ul (0-0.6); ABS Lymphocytes 0.4 10^3/ul (1.0-4.8); ABS Monocytes 0.9 10^3/ul (0-0.8); ABS Neutrophils 12.1 10^3/ul (1.5-7.7); Eosinophil % 0.7 %; Hematocrit 27 % (42-52); Hemoglobin 9.2 g/dL (14.0-18.0); Lymphocyte % 3.1 %; Mean Corpuscular HGB Conc 34 g/dL (31-36); Mean Corpuscular Hemoglobin 31 pg (27-31); Mean Corpuscular Volume 91 fL (80-94); Mean Platelet Volume 9.1 fL (7.4-10.4); Nucleated Red Blood Cells % 0.1; Platelet Count 156 10^3/uL (150-450); Red Blood Count 3.01 10^6 /uL (4.18-5.48); Red Cell Distribution Width 18 % (10-15); White Blood Count 13.6 10^3/uL (3.5-10.8)
[2020-11-21 12:12] LABS: Albumin 2.4 g/dL (3.2-5.2); Potassium 4.1 mmol/L (3.5-5.0); Total Bilirubin 5.1 mg/dL (0.2-1.0)
[2020-11-21 12:18] LABS: Albumin/Globulin Ratio 0.7 (1-3); EGFR Non-African American 51.2 (>60); Globulin 3.6 g/dL (2-4)
[2020-11-21] MEDS ORDERED: Gadoteridol (CONTRAST) 279.3 MG/ML 10 ML IV ONE (15:46)
[2020-11-22 06:14] LABS: Hematocrit 27 % (42-52); Hemoglobin 9.2 g/dL (14.0-18.0); Mean Corpuscular HGB Conc 33 g/dL (31-36); Mean Corpuscular Hemoglobin 30 pg (27-31); Mean Corpuscular Volume 91 fL (80-94); Mean Platelet Volume 9.1 fL (7.4-10.4); Platelet Count 158 10^3/uL (150-450); Red Blood Count 3.02 10^6 /uL (4.18-5.48); Red Cell Distribution Width 18 % (10-15); White Blood Count 12.1 10^3/uL (3.5-10.8)
[2020-11-22 06:29] LABS: Albumin 2.3 g/dL (3.2-5.2); Albumin/Globulin Ratio 0.7 (1-3); EGFR African American 60.4 (>60); Globulin 3.5 g/dL (2-4); Potassium 4.2 mmol/L (3.5-5.0); Total Protein 5.8 g/dL (6.4-8.9)
[2020-11-22] MEDS: Pantoprazole VIAL 40 MG VIAL IV SCH ×2 (08:42→21:03)
[2020-11-22] MEDS: Timolol 0.5% OPTH.SOL BTL LEFT EYE SCH (08:43)
[2020-11-22] MEDS: CMCS: Brimonidine P 0.15%(NF) OPH SOL 5 ML BTL LEFT EYE SCH (08:43)
[2020-11-22] MEDS: Cefepime 2 GM in Dextrose 2 GM/50 ML BAG IV SCH (08:56)
[2020-11-22] MEDS ORDERED: Vancomycin Trough Check NOTE FOLLOW UP ONE (11:30)
[2020-11-22] MEDS: Vancomycin 750 MG in NS 0.9% 250 ML IVPB SCH (12:09)
[2020-11-22] MEDS ORDERED: Phytonadione IV (Adult) 10 MG in NS 0.9% 50 ML 50 ML IV ONE (19:45)
[2020-11-22] MEDS ORDERED: Phytonadione IV (Adult) 10 MG/ML 1 ML AMP ONE (20:51)
[2020-11-23] MEDS: Timolol 0.5% OPTH.SOL BTL LEFT EYE SCH (08:48)
[2020-11-23] MEDS: Pantoprazole VIAL 40 MG VIAL IV SCH ×2 (08:48→19:34)
[2020-11-23] MEDS: CMCS: Brimonidine P 0.15%(NF) OPH SOL 5 ML BTL LEFT EYE SCH (08:48)
[2020-11-23] MEDS ORDERED: Morphine 2 MG/ML SYRINGE IV ONE (09:29)
[2020-11-23 11:10] LABS: ABS Basophils 0.1 10^3/ul (0-0.2); ABS Eosinophils 0.2 10^3/ul (0-0.6); ABS Lymphocytes 0.7 10^3/ul (1.0-4.8); ABS Neutrophils 15.6 10^3/ul (1.5-7.7); Eosinophil % 1.2 %; Hematocrit 29 % (42-52); Hemoglobin 9.4 g/dL (14.0-18.0); Lymphocyte % 4.2 %; Mean Corpuscular HGB Conc 32 g/dL (31-36); Mean Corpuscular Hemoglobin 30 pg (27-31); Mean Corpuscular Volume 91 fL (80-94); Mean Platelet Volume 9.5 fL (7.4-10.4); Platelet Count 238 10^3/uL (150-450); Red Blood Count 3.18 10^6 /uL (4.18-5.48); Red Cell Distribution Width 19 % (10-15); White Blood Count 17.6 10^3/uL (3.5-10.8)
[2020-11-23 11:35] LABS: INR 1.19 (0.86-1.15)
[2020-11-23 11:56] LABS: Albumin 2.4 g/dL (3.2-5.2); Albumin/Globulin Ratio 0.7 (1-3); Calcium 7.4 mg/dL (8.6-10.3); EGFR African American 38.3 (>60); EGFR Non-African American 31.6 (>60); Globulin 3.6 g/dL (2-4); Potassium 4.4 mmol/L (3.5-5.0); Total Bilirubin 6.3 mg/dL (0.2-1.0)
[2020-11-23] MEDS ORDERED: NS 0.9% 1000 ml BAG 1,000 ML IV SCH (12:45)
[2020-11-23] MEDS: Cefepime 2 GM in Dextrose 2 GM/50 ML BAG IV SCH (13:36)
[2020-11-23] MEDS ORDERED: fentaNYL 100 mcg/2 ml 50 MCG/ML VIAL ONE (16:01)
[2020-11-23] MEDS ORDERED: Albumin Human 25% 25 GM/100 ML BTL IV ONE (18:00)
[2020-11-23 19:10] LABS: Urine Appearance Cloudy; Urine Bilirubin 1+ (Negative); Urine Blood 2+ (Negative); Urine Color Amber; Urine Glucose Negative (Negative); Urine Ketones Negative (Negative); Urine Nitrite Negative (Negative); Urine Protein 1+(30 mg/dL) (Negative); Urine Specific Gravity 1.016 (1.002-1.030); Urine Urobilinogen Negative (Negative)
[2020-11-23 19:19] LABS: Urine Bacteria Absent (Absent); Urine Red Blood Cell Absent (Absent); Urine White Blood Cell Absent (Absent); Urine Yeast Present (Absent)
[2020-11-23] MEDS ORDERED: Albumin Human 25% 25 GM/100 ML IV ONE (19:30)
[2020-11-23 20:32] LABS: C Reactive Protein 149.62 mg/L (<8.01)
[2020-11-24] MEDS: Cefepime 2 GM in Dextrose 2 GM/50 ML BAG IV SCH ×2 (01:11→14:20)
[2020-11-24 06:23] LABS: ABS Eosinophils 0.1 10^3/ul (0-0.6); ABS Lymphocytes 0.6 10^3/ul (1.0-4.8); ABS Monocytes 0.6 10^3/ul (0-0.8); ABS Neutrophils 8.9 10^3/ul (1.5-7.7); Eosinophil % 1.1 %; Hematocrit 24 % (42-52); Lymphocyte % 5.4 %; Mean Corpuscular HGB Conc 34 g/dL (31-36); Mean Corpuscular Hemoglobin 31 pg (27-31); Mean Corpuscular Volume 91 fL (80-94); Mean Platelet Volume 9.2 fL (7.4-10.4); Platelet Count 151 10^3/uL (150-450); Red Blood Count 2.59 10^6 /uL (4.18-5.48); Red Cell Distribution Width 18 % (10-15); White Blood Count 10.2 10^3/uL (3.5-10.8)
[2020-11-24 06:38] LABS: Albumin 2.5 g/dL (3.2-5.2); Albumin/Globulin Ratio 0.8 (1-3); Calcium 7.2 mg/dL (8.6-10.3); EGFR African American 30.7 (>60); EGFR Non-African American 25.4 (>60); Globulin 3.2 g/dL (2-4); Potassium 4.5 mmol/L (3.5-5.0); Total Bilirubin 6.5 mg/dL (0.2-1.0); Total Protein 5.7 g/dL (6.4-8.9)
[2020-11-24] MEDS: Timolol 0.5% OPTH.SOL BTL LEFT EYE SCH (08:28)
[2020-11-24] MEDS: Pantoprazole VIAL 40 MG VIAL IV SCH ×2 (08:29→21:22)
[2020-11-24] MEDS: CMCS: Brimonidine P 0.15%(NF) OPH SOL 5 ML BTL LEFT EYE SCH (08:40)
[2020-11-24] MEDS: Albumin Human 25% 25 GM/100 ML BTL IV SCH ×3 (21:17→23:28)
[2020-11-25] MEDS: Octreotide Acetate 500 MCG in NS 0.9% 100 ml BAG 100 ML IV SCH ×2 (02:41→08:39)
[2020-11-25 07:19] LABS: Hematocrit 22 % (42-52); Hemoglobin 7.7 g/dL (14.0-18.0); Mean Corpuscular HGB Conc 35 g/dL (31-36); Mean Corpuscular Hemoglobin 31 pg (27-31); Mean Corpuscular Volume 90 fL (80-94); Mean Platelet Volume 9.2 fL (7.4-10.4); Platelet Count 133 10^3/uL (150-450); Red Blood Count 2.47 10^6 /uL (4.18-5.48); Red Cell Distribution Width 18 % (10-15); White Blood Count 7.9 10^3/uL (3.5-10.8)
[2020-11-25 07:23] LABS: Albumin/Globulin Ratio 1.1 (1-3); Calcium 7.5 mg/dL (8.6-10.3); EGFR African American 25.6 (>60); EGFR Non-African American 21.1 (>60); Globulin 2.8 g/dL (2-4); Potassium 4.2 mmol/L (3.5-5.0); Total Bilirubin 7.3 mg/dL (0.2-1.0); Total Protein 5.8 g/dL (6.4-8.9)
[2020-11-25 08:20] LABS: RBC Morphology Normal (Normal)
[2020-11-25 08:21] LABS: ABS Eosinophils 0.1 10^3/ul (0-0.6); ABS Lymphocytes 1.6 10^3/ul (1.0-4.8); ABS Monocytes 0.5 10^3/ul (0-0.8); ABS Neutrophils 5.7 10^3/ul (1.5-7.7); Eosinophil % 0.9 %; Lymphocyte % 20.8 %; Nucleated Red Blood Cells % 0.1
[2020-11-25] MEDS: Pantoprazole VIAL 40 MG VIAL IV SCH (08:32)
[2020-11-25] MEDS: CMCS: Brimonidine P 0.15%(NF) OPH SOL 5 ML BTL LEFT EYE SCH (08:38)
[2020-11-25] MEDS: Timolol 0.5% OPTH.SOL BTL LEFT EYE SCH (08:39)
[2020-11-25] MEDS ORDERED: Albumin Human 25% 25 GM/100 ML IV SCH ×2 (09:00→09:30)
[2020-11-25 10:05] VITALS: BP 111/49
[2020-11-25] MEDS ORDERED: CEFEPIME 2 GM in Dextrose 50 mL IV SCH (14:00)
== END 2020-11-25 13:00 | disposition home or self-care (01) | DRG 368 ==
LOC: ED 08:13 → ICU 09:56 → MEDTELE 11-17 15:59
PROVIDERS: ADMIT Internal Medicine; ATTEND Internal Medicine Hematology & Oncology
PROC: O.GIEGD (2020-11-15 11:20)